=== PATIENT | female | born 1960 | race Caucasian/White ===

== ENCOUNTER 2018-03-02 16:57 | Emergency (ER) | payer MEDICAID ==
[~2018-03-02 16:57] MED LIST: CYCLOBENZAPRINE5 MG PO; Cleocin PO; HYDROCODONE-APA1 TAB PO; LEVAQUIN500 MG PO; MIRALAX17 GM PO; NEURONTIN600 MG PO
[2018-03-02 17:49] VITALS: Ht 152.4 cm
[2018-03-02 19:56] VITALS: BP 122/53
== END 2018-03-02 20:44 | disposition home or self-care (01) ==
LOC: D.ER 16:57
DX: T67.5XXA Heat exhaustion, unspecified, initial encounter (principal); X58.XXXA Exposure to other specified factors, initial encounter; Y93.89 Activity, other specified; Y92.89 Other specified places as the place of occurrence of the external cause; F41.9 Anxiety disorder, unspecified; R42 Dizziness and giddiness; J45.909 Unspecified asthma, uncomplicated; Z85.038 Personal history of other malignant neoplasm of large intestine

== ENCOUNTER 2019-04-30 17:29 | Emergency (ER) | payer MEDICAID ==
[~2019-04-30] VITALS: Ht 152.4 cm; Wt 90.9 kg
[2019-04-30 18:53] LABS: HEMATOCRIT 46.9 % (36.0-48.0); HEMOGLOBIN 15.4 g/dL (12-16); LYMPHOCYTES 23.1 % (15-50); MCH 29.2 pg (26.0-34.0); MCHC 32.8 g/dL (31.0-37.0); MCV 88.8 fL (80.0-100.0); MEAN PLATELET VOLUME 7.2 fL (7.4-10.4); NEUTROPHILS 70.9 % (40-80); RBC 5.28 10x6/uL (4.00-5.40); RDW 14.8 % (11.5-14.5); WBC 10.3 10x3/uL (4.8-10.8)
[2019-04-30 18:54] LABS: PLATELET COUNT 473 10x3/uL (130-400)
[2019-04-30 19:25] LABS: CALC OSMOLALITY 274 mosm/kg (275-300); CALCIUM 9.7 mg/dL (8.5-10.1); CARBON DIOXIDE 25.2 mmol/L (21.0-32.0); CHLORIDE - SERUM 104 mmol/L (98-107); CREATININE - SERUM 0.9 mg/dL (0.6-1.3); GLUCOSE 84 mg/dL (74-106); POTASSIUM - SERUM 4.5 mmol/L (3.5-5.1); SODIUM 138 mmol/L (136-145); UREA NITROGEN 13 mg/dL (7-18); eGFR NON AFRICAN AMERICAN 68 mL/min (90-120)
[2019-04-30 19:35] LABS: ALBUMIN 2.8 g/dL (3.4-5.0); ALKALINE PHOSPHATASE 138 U/L (46-116); ALT (SGPT) 15 U/L (10-68); AMYLASE - SERUM 33 U/L (25-115); BILIRUBIN - TOTAL 0.15 mg/dL (0.2-1.3); LIPASE 62 U/L (73-393); PROTEIN - SERUM 7.4 g/dL (6.4-8.2)
[2019-04-30 19:36] LABS: TROPONIN-I < 0.017 ng/mL (0.000-0.060)
[2019-04-30 20:00] LABS: APPEARANCE CLEAR (CLEAR); BILIRUBIN NEGATIVE (NEGATIVE); COLOR YELLOW (YELLOW); GLUCOSE NEGATIVE (NEGATIVE); KETONE NEGATIVE (NEGATIVE); NITRITE NEGATIVE (NEGATIVE); PROTEIN NEGATIVE (NEGATIVE); UROBILINOGEN NORMAL (NORMAL)
[2019-04-30] MEDS ORDERED: CIPROFLOXACIN750 MG PO (21:22)
[2019-04-30] MEDS ORDERED: FLAGYL500 MG PO (21:22)
[2019-04-30 21:58] VITALS: Ht 152.4 cm; Wt 90.9 kg
[2019-04-30 22:08] VITALS: BP 99/59
== END 2019-04-30 22:08 | disposition home or self-care (01) ==
LOC: D.ER 17:29
PROVIDERS: Family Medicine
DX: K65.1 Peritoneal abscess (principal); K65.9 Peritonitis, unspecified; J45.909 Unspecified asthma, uncomplicated

== ENCOUNTER 2019-05-29 08:49 | Inpatient (IN) | payer MEDICAID ==
[~2019-05-29] VITALS: Ht 152.4 cm; Wt 108.6 kg
[~2019-05-29 08:49] MED LIST changes: +CIPROFLOXACIN750 MG PO; +FLAGYL500 MG PO
[2019-05-30] VITALS (33 sets, daily range): BP systolic 64–157; BP diastolic 32–93; BMI 41.2
[2019-05-30 06:40] LABS: BASOPHILS 0.5 % (0-2); EOSINOPHILS 3.6 % (0-7); HEMATOCRIT 49.3 % (36.0-48.0); HEMOGLOBIN 15.8 g/dL (12-16); IMMATURE GRANULOCYTES 0.6 % (0-5); LYMPHOCYTES 27.8 % (15-50); MCH 28.9 pg (26.0-34.0); MCV 90.3 fL (80.0-100.0); MEAN PLATELET VOLUME 8.3 fL (7.4-10.4); MONOCYTES 7.8 % (2-11); NEUTROPHILS 59.7 % (40-80); RBC 5.46 10x6/uL (4.00-5.40); RDW 15.4 % (11.5-14.5); WBC 7.7 10x3/uL (4.8-10.8)
[2019-05-30 07:04] LABS: APTT 29.4 SECONDS (22.8-39.4); INR 0.92 (0.85-1.17); PROTIME 11.9 SECONDS (11.6-15.0)
[2019-05-30 07:22] LABS: PLATELET COUNT 338 10x3/uL (130-400)
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
--- NOTE | 2019-05-30 08:30 | NUR ---
0807 SPOKE WITH HERO PARSONS, SHAKER OUT. HERO REQUESTED THAT PATRICE BE NOTIFIED. UNABLE TO REACH PATRICE. LEFT [facility] FOR HER TO CALL BACK.
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
[2019-05-30 13:41] LABS: HEMATOCRIT 40.7 % (36.0-48.0); HEMOGLOBIN 12.9 g/dL (12-16)
--- NOTE | 2019-05-30 15:27 | NUR ---
PT ARRIVED TO PACU ON NOREPINEPHRINE DRIP @10ML/HR WITH LOW BP OF 86/50. ANESTHESIA AT BEDSIDE. VERBAL ORDER TO INCREASE TO 20ML/HR. BP TRENDING UP WITH CURRENT BP 122/66. WILL CTM AND TAPER NEEDED/ORDERED.
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
--- NOTE | 2019-05-30 18:15 | NUR ---
DR. RESENDIZ STILL HERE. DR. POOLE HERE AND PLACED L SUBCLAVIAN TRIPLE LUMEN CATH. R RADIAL ART LINE PLACED BY NURSE ANESTHESIST.
--- NOTE | 2019-05-30 19:00 | NUR ---
REPORT RECEIVED. RECEIVED PATIENT IN BED. RESTING WITH EYES CLOSED, ROUSES TO VERBAL STIMULI/DROWSY. ORIENTED TO PERSON WITH SOME CONFUSION TO PLACE/DATE. ASSESSMENT COMPLETED PER FLOW SHEET. MONITORS CONNECTED TO PATIENT. VSS.
[2019-05-30 19:12] LABS: APTT 24.9 SECONDS (22.8-39.4)
[2019-05-30 19:13] LABS: INR 1.29 (0.85-1.17); PROTIME 15.6 SECONDS (11.6-15.0)
--- NOTE | 2019-05-30 21:00 | NUR ---
FAMILY AT BEDSIDE, UPDATE GIVEN. VSS
--- NOTE | 2019-05-30 23:00 | NUR ---
TRANSPORTED TO CT. CONNECTED TO PORTABLE MONITORS. VSS. REASSESSMENT COMPLETED PER FLOW SHEET WITH NO ACUTE DISTRESS OBSERVED.
[2019-05-30 23:05] LABS: HEMATOCRIT 40.3 % (36.0-48.0); HEMOGLOBIN 13.2 g/dL (12-16)
[2019-05-30 23:14] LABS: INR 1.19 (0.85-1.17); PROTIME 14.6 SECONDS (11.6-15.0)
--- NOTE | 2019-05-30 23:23 | NUR ---
RETURNED TO ROOM CV01. BERENICE CT WELL. VSS.
--- NOTE | 2019-05-30 23:37 | NUR ---
SPOKE WITH DR. MATHIAS UPDATED ON PATIENT AND LAB RESULTS. NEW ORDERS RECEIVED.
[2019-05-31] VITALS (82 sets, daily range): BP systolic 73–134; BP diastolic 36–68; Ht 152.4 cm; Wt 108.6 kg
--- NOTE | 2019-05-31 | NUR ---
REPORT RECEIVED. RECEIVED PATIENT IN BED , RESTING WITH EYES CLOSED. ROUSES EASILY TO VOICE/ ALERT AND ORIENTED X 4. ASSESSMENT COMPLETED PER FLOW SHEET WITH NO ACUTE DISTRESS OBSERVED. MONITORS CONNECTED TO PATIENT WITH ALARMS SET. VSS. CALL LIGHT IN REACH AND ABLE TO UTILIZE TO MAKE NEEDS KNOWN.
--- NOTE | 2019-05-31 01:00 | NUR ---
RESTING WITH EYES CLOSED, ROUSES TO VOICE. VSS.
--- NOTE | 2019-05-31 05:00 | NUR ---
RESTING WITH EYES CLOSED, ROUSES TO VERBAL STIMULI/DROWSY. VSS.
[2019-05-31 05:54] LABS: HEMATOCRIT 36.7 % (36.0-48.0); HEMOGLOBIN 11.9 g/dL (12-16); MCH 28.7 pg (26.0-34.0); MCHC 32.4 g/dL (31.0-37.0); MCV 88.6 fL (80.0-100.0); MEAN PLATELET VOLUME 8.4 fL (7.4-10.4); PLATELET COUNT 294 10x3/uL (130-400); RBC 4.14 10x6/uL (4.00-5.40); RDW 15.4 % (11.5-14.5); WBC 24.4 10x3/uL (4.8-10.8)
[2019-05-31 05:57] LABS: APTT 30.4 SECONDS (22.8-39.4); INR 1.23 (0.85-1.17); PROTIME 14.9 SECONDS (11.6-15.0)
[2019-05-31 06:28] LABS: EOSINOPHILS 2 % (0-7); LYMPHOCYTES 7 % (15-50); MONOCYTES 8 % (2-11); NEUTROPHILS 74 % (40-80); PLATELET ESTIMATE NORMAL
[2019-05-31 06:30] LABS: ALBUMIN 1.6 g/dL (3.4-5.0); ANION GAP 13.4 mmol/L (8-16); BILIRUBIN - TOTAL 0.15 mg/dL (0.2-1.3); CARBON DIOXIDE 25.9 mmol/L (21.0-32.0); CREATININE - SERUM 1.3 mg/dL (0.6-1.3); MAGNESIUM - SERUM 1.3 mg/dL (1.8-2.4); PHOSPHOROUS 3.3 mg/dL (2.5-4.9); POTASSIUM - SERUM 4.3 mmol/L (3.5-5.1); PROTEIN - SERUM 4.3 g/dL (6.4-8.2)
[2019-05-31 06:41] LABS: CALCIUM 6.8 mg/dL (8.5-10.1); TROPONIN-I 0.069 ng/mL (0.000-0.060)
--- NOTE | 2019-05-31 06:54 | NUR ---
BHARATHI BALBUENA FOR CRITICAL LAB RESULTS
--- NOTE | 2019-05-31 07:04 | NUR ---
TOD BOBO APN CALLED BACK AND CALCIUM RESULTS WE GIVEN, NO NEW ORDERS
[2019-05-31 11:45] LABS: HEMATOCRIT 32.9 % (36.0-48.0); HEMOGLOBIN 10.7 g/dL (12-16)
[2019-05-31 19:40] LABS: HEMATOCRIT 31.8 % (36.0-48.0); HEMOGLOBIN 10.2 g/dL (12-16)
--- NOTE | 2019-05-31 21:00 | NUR ---
FAMILY AT BEDSIDE. UPDATE GIVEN. VSS. NO DISTRESS OBSERVED
--- NOTE | 2019-05-31 23:00 | NUR ---
RESTING WITH EYES CLOSED, EASILY ROUSED AND ALERT. VSS. REASSMENT COMPLETED PER FLOW SHEET WITH NO ACUTE DISTRESS OBSERVED. CALL LIGHT IN REACH
[2019-06-01] VITALS (31 sets, daily range): BP systolic 90–127; BP diastolic 42–60
--- NOTE | 2019-06-01 01:00 | NUR ---
RESTING WITH EYES CLOSED, EASILY ROUSED TO VERBAL STIMULI AND ALERT. VSS. CALL LIGHT IN REACH
--- NOTE | 2019-06-01 03:00 | NUR ---
REASSESSMENT COMPLETED PER FLOW SHEET WITH NO ACUTE DISTRESS OBSERVED. VSS
[2019-06-01 04:49] LABS: BASOPHILS 0.1 % (0-2); EOSINOPHILS 0.1 % (0-7); HEMATOCRIT 29.1 % (36.0-48.0); HEMOGLOBIN 9.2 g/dL (12-16); IMMATURE GRANULOCYTES 0.5 % (0-5); LYMPHOCYTES 7.6 % (15-50); MCH 28.7 pg (26.0-34.0); MCHC 31.6 g/dL (31.0-37.0); MEAN PLATELET VOLUME 8.4 fL (7.4-10.4); MONOCYTES 3.5 % (2-11); NEUTROPHILS 88.2 % (40-80); RBC 3.21 10x6/uL (4.00-5.40); RDW 15.9 % (11.5-14.5)
[2019-06-01 04:50] LABS: MCV 90.7 fL (80.0-100.0); PLATELET COUNT 223 10x3/uL (130-400)
[2019-06-01 05:09] LABS: ALBUMIN 1.3 g/dL (3.4-5.0); ANION GAP 8.4 mmol/L (8-16); BILIRUBIN - TOTAL 0.15 mg/dL (0.2-1.3); CARBON DIOXIDE 28.5 mmol/L (21.0-32.0); POTASSIUM - SERUM 3.9 mmol/L (3.5-5.1); PROTEIN - SERUM 4.2 g/dL (6.4-8.2)
[2019-06-01 05:18] LABS: MAGNESIUM - SERUM 2.2 mg/dL (1.8-2.4); PHOSPHOROUS 2.4 mg/dL (2.5-4.9)
--- NOTE | 2019-06-01 07:00 | NUR ---
REPORT RECEIVED CARE ASSUMED ASSESSMENT DONE. SEE FLOW SHEET VSS.
[2019-06-01 11:45] LABS: HEMATOCRIT 28.3 % (36.0-48.0); HEMOGLOBIN 8.8 g/dL (12-16)
--- NOTE | 2019-06-01 17:00 | NUR ---
0900 MED GIVEN PER MAR. VSS. 1100 REASSESSMENT DONE SEE FLOW SHEET VSS. NO SIGNS OF ACUTE DISTRESS NOTED. 0100 PT RESTING NO SING SOF ACUTE DISTRESS NOTED. 0300 REASSESSMENT DONE SEE FLOW SHEET. VSS. 0500 IO COLLECTED DAILY WEIGHT COLLECTECTED.
--- NOTE | 2019-06-01 19:00 | NUR ---
REPORT RECIEVED. RECEIVED PATIENT IN BED RESTING WITH EYES CLOSED. ROUSES TO VERBAL STIMULI/LIGHT TOUCH. VERY DROWSY. FALLS TO SLEEP DURING ASSESSMENT. WILL FOLLOW COMMANDS BRIEFLY. MONITORS CONNECTED TO PATIENT WITH ALARMS SET. VSS AT PRESENT. BP TRENDING DOWN, WILL MONITOR.
--- NOTE | 2019-06-01 19:45 | NUR ---
BP 92/46. MAP 58. EPIDURAL INF PAUSED AT THIS TIME.
--- NOTE | 2019-06-01 20:00 | NUR ---
SPOKE WITH CRISTINA SILVA DISH TECHNICIAN DISCUSSED PATIENT'S LOC/SEDATION AND LOW BP,INSTRUCTED TO CONTINUE HOLDING EPIDURAL INF AND DISCUSS WITH DR. MATHIAS.
--- NOTE | 2019-06-01 20:20 | NUR ---
SPOKE WITH DR. MATHIAS, DISCUSSED PATIENTS LOC/SEDATION AND LOW BP. NEW ORDERS RECEIVED.
--- NOTE | 2019-06-01 21:00 | NUR ---
VSS. RESTING WITH EYES CLOSED/ROUSES TO VOICE/DROWSY.
--- NOTE | 2019-06-01 23:00 | NUR ---
REASSESSMENT COMPLETED PER FLOW SHEET. RESTING WITH EYES COSED, ROUSES EASILY TO VOICE. MORE ALERT. ORIENTED X 4. VSS.
[2019-06-02] VITALS (26 sets, daily range): BP systolic 100–143; BP diastolic 36–74
--- NOTE | 2019-06-02 01:00 | NUR ---
PATIENT AWAKE AND ALERT. VSS. PRN PAIN MEDS ADMIN PER MAR AND BERENICE WELL.
--- NOTE | 2019-06-02 03:00 | NUR ---
REASSESSMENT COMPLETED PER FLOW SHEET WITH NO ACUTE DISTRESS OBSERVED. VSS
--- NOTE | 2019-06-02 05:00 | NUR ---
RESTING WITH EYES CLOSED, EASILY ROUSED AND ALERT.VSS
[2019-06-02 05:44] LABS: BASOPHILS 0.1 % (0-2); EOSINOPHILS 0.8 % (0-7); HEMATOCRIT 28.4 % (36.0-48.0); HEMOGLOBIN 8.9 g/dL (12-16); IMMATURE GRANULOCYTES 0.5 % (0-5); LYMPHOCYTES 8.6 % (15-50); MCH 28.7 pg (26.0-34.0); MCHC 31.3 g/dL (31.0-37.0); MCV 91.6 fL (80.0-100.0); MEAN PLATELET VOLUME 8.4 fL (7.4-10.4); MONOCYTES 3.2 % (2-11); NEUTROPHILS 86.8 % (40-80); PLATELET COUNT 228 10x3/uL (130-400); WBC 16.8 10x3/uL (4.8-10.8)
[2019-06-02 06:03] LABS: ALBUMIN 1.3 g/dL (3.4-5.0); ALKALINE PHOSPHATASE 99 U/L (46-116); ALT (SGPT) 11 U/L (10-68); BILIRUBIN - TOTAL 0.14 mg/dL (0.2-1.3); CALC OSMOLALITY 283 mosm/kg (275-300); CALCIUM 7.7 mg/dL (8.5-10.1); CARBON DIOXIDE 27.3 mmol/L (21.0-32.0); CHLORIDE - SERUM 110 mmol/L (98-107); CREATININE - SERUM 0.7 mg/dL (0.6-1.3); GLUCOSE 100 mg/dL (74-106); PHOSPHOROUS 1.9 mg/dL (2.5-4.9); POTASSIUM - SERUM 3.8 mmol/L (3.5-5.1); PROTEIN - SERUM 4.6 g/dL (6.4-8.2); SODIUM 143 mmol/L (136-145); UREA NITROGEN 11 mg/dL (7-18); eGFR NON AFRICAN AMERICAN > 90 mL/min (90-120)
--- NOTE | 2019-06-02 11:00 | NUR ---
0700 ASSESSMENT DONE SEE FLOW SHEET VSS NO SIGNS OF ACUTE DISTRESS NOTED. 0900 MED GIVEN PER MAR. VSS. NO SIGNS OF ACUTE DISTRESS. 1100 REASSESSMENT DONE SEE FLOW SHEET. VSS.
--- NOTE | 2019-06-02 12:08 | NUR ---
PT CRYING OUT IN PAIN. VEHICLE CONTROLS ENGINEER BOLUS DOSE GIVEN WILL CONTINUE TO MONITOR.
--- NOTE | 2019-06-02 12:50 | NUR ---
Nutrition Follow-up: Awaiting return of bowel function. NGT to LIS. NPO x 3 days. Wt: 239# (06/01); 234.7# (05/31) Labs noted: Ca 7.7, Alb 1.3, PO4 1.9 Meds noted: D5LR @ 70 -Rec initiate nutrition support. RD available for assistance. -RD following.
--- NOTE | 2019-06-02 15:00 | NUR ---
1300 PT AMBULATED TO CHAIR AND BED MODERATE ASSISTANCE PROVIDED. 1500 REASSESSMENT DONE SEE FLOW SHEET VSS.
--- NOTE | 2019-06-02 19:24 | NUR ---
PT RECEIVED WITH EYES OPEN WATCHING TV. COMPLAINS OF PAIN 8/10 MECHANICAL LABORATORY TECHNICIAN LIGHT GREEN, PT ENCOURAGED TO USE MECHANICAL LABORATORY TECHNICIAN. NO OTHER NEEDS OR CONCERNS NOTED. CALL LIGHT IN REACH. WILL CONTINUE TO OBSERVE.
--- NOTE | 2019-06-02 21:20 | NUR ---
PT WITH EYES OPEN. PT MOANING AND STATES PAIN, LIGHT GREEN ON HOME ADMINISTRATOR AND PT REMINDED TO PUSH LIGHT WHEN GREEN IF SHE IS HURTING. PT SAYS OK. NO OTHER NEEDS OR REQUEST. WILL CONTINUE TO OBSERVE. CALL LIGHT IN REACH.
--- NOTE | 2019-06-02 23:30 | NUR ---
PT CONTINUES PAIN WITH 0.4 BOLUS GIVEN. VSS AT THIS TIME. WILL CONTIUE TO OBSERVE.
[2019-06-03] VITALS (18 sets, daily range): BP systolic 91–157; BP diastolic 56–91
--- NOTE | 2019-06-03 01:13 | NUR ---
PT ON BIPAP WITH EYES CLOSED AND CHEST RISING. VSS. NO S/S OF DISTRESS. CALL LIGHT IN REACH. WILL CONTINUE TO OBSERVE.
--- NOTE | 2019-06-03 05:27 | NUR ---
PT GIVEN CHG BATH, TOLERATED WELL. LINENS CHANGED. WILL CONTINUE TO OBSERVE.
--- NOTE | 2019-06-03 05:28 | NUR ---
PT CONTINUES BIPAP, TOLERATING WELL. NO S/S OF DISTRESS. WILL CONTINUE TO OBSERVE.
--- NOTE | 2019-06-03 09:00 | NUR ---
0700 ASSESSMENT DONE SEE FLOW SHEET VSS 0900 WATER PROVIDED PER PT REQUEST VSS WILL CONTINUE TO MONITOR.
[2019-06-03 09:06] LABS: HEMATOCRIT 29.4 % (36.0-48.0); HEMOGLOBIN 9.3 g/dL (12-16); MCH 28.5 pg (26.0-34.0); MCHC 31.6 g/dL (31.0-37.0); MCV 90.2 fL (80.0-100.0); RBC 3.26 10x6/uL (4.00-5.40); RDW 15.5 % (11.5-14.5); WBC 13.2 10x3/uL (4.8-10.8)
[2019-06-03 09:08] LABS: PLATELET COUNT 299 10x3/uL (130-400)
[2019-06-03 09:20] LABS: ALBUMIN 1.3 g/dL (3.4-5.0); ALKALINE PHOSPHATASE 107 U/L (46-116); ALT (SGPT) 10 U/L (10-68); BILIRUBIN - TOTAL 0.39 mg/dL (0.2-1.3); CALCIUM 7.9 mg/dL (8.5-10.1); CARBON DIOXIDE 26.9 mmol/L (21.0-32.0); CHLORIDE - SERUM 106 mmol/L (98-107); GLUCOSE 80 mg/dL (74-106); POTASSIUM - SERUM 3.5 mmol/L (3.5-5.1); PROTEIN - SERUM 4.9 g/dL (6.4-8.2); SODIUM 138 mmol/L (136-145)
[2019-06-03 09:21] LABS: CALC OSMOLALITY 272 mosm/kg (275-300); CREATININE - SERUM 0.5 mg/dL (0.6-1.3); UREA NITROGEN 8 mg/dL (7-18); eGFR NON AFRICAN AMERICAN > 90 mL/min (90-120)
--- NOTE | 2019-06-03 10:22 | OP ---
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 POSTOPERATIVE DIAGNOSES: 1. Longstanding intra-abdominal draining sinus tract, due to an intra-abdominal "meshoma." 2. Extensive intra-abdominal adhesions. 3. Full-thickness enterotomies times 2. 4. Multiple seromyotomies. 5. Large central abdominal myofascial defect after mesh was excised. PROCEDURES: 1. Exploratory laparotomy, extensive adhesiolysis, 95 minutes. 2. Extensive excisional debridement of abdominal wall. 3. Small bowel resections times 2 with enteroenterostomies. 4. Bilateral component's separation technique for abdominal wall closure. The myofascial release on the left was 20.0 cm and on the right was 15.5 cm. SURGEON: Jeremy Mathias MD CHANNEL LIP WETTER: None. BLOOD LOSS: Please see the anesthesia sheet. DRAINS: Times 2. 19-Urdu round fully fluted closed suction drainage systems. This was a dirty case as purulence was present. The risks, possible complications and alternatives to the procedure were explained to the patient. She elects to proceed. The discussion specifically included, but was not limited to, bleeding requiring an emergency reoperation, infection, intestinal injury, recurrent hernia, colostomy or ileostomy formation, recurrent infection or draining sinus. OPERATIVE COURSE: The patient was conveyed to the operating room electively on 05/30/2019. General anesthesia was induced by the anesthesia staff. The abdomen was sterilely prepped and draped. The patient underwent a placement of an epidural for postoperative pain relief. After general anesthesia, a central venous catheter was placed by the anesthesia staff. Through the use of double curvilinear incisions, the skin and subcutaneous tissue in the midline was excised. 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 I did not take measurements of the excised tissue. I then incised in the midline down to some mesh. I incised through the mesh. I OPERATIVE REPORT [id number] PATRICE COOK then extended my fascial incision caudad. My adhesiolysis cephalad revealed no incisional hernia. The hernia was a meticulous operation and most of the adhesions were grade II and grade III adhesions. Several seromyotomies has occurred. Two full-thickness enterotomies occurred and this was around the meshoma. In the midline posteriorly, I was able to follow the cutaneous sinus down to a wad of mesh that contained purulent material. Cultures were obtained. I can see why the patient had a recurrent draining wound. As this ball of mesh became infected, it made it almost impossible to heal the mesh as it was a nidus for a chronic draining. I noted no enterocutaneous fistula. On either side of the mesh I excised, there was a great deal of fibrotic material around the mesh. I excised this. This was a fairly extensive excision. There were several loops of small bowel, which really were inseparable from the mesh and this is where the full-thickness enterotomies occurred. I controlled contamination by placing Babcocks on the areas where the enterotomies occurred. There were no colotomies. I excised this meshoma. Additional mesh, that was not well incorporated into the patient's abdominal wall, was sharply and bluntly excised in a piecemeal fashion as well. The mesh that was well incorporated into the anterior abdominal wall, particularly cephalad and laterally, was left in place without trying to excise it as this would have been counterproductive. Some attenuated fascia in the midline was excised so that I could excise back to the rectus fascia bilaterally. I extended my incision caudad. Some of this mesh tracked all the way anterior to the left side of the bladder. I tried to excise as much of this mesh as I could, however, in order to excise all this mesh I would have had to perform a partial cystectomy with a bladder reconstruction as the mesh and the bladder were really inseparable. Additionally, this mesh which was between the pubic bone and the bladder extended to the left and is likely a stuck to, or very near the left ureter as it enters the bladder. I identified on purulence here. What I did here is I irrigated with hydrogen peroxide. I then closed some surrounding tissue over this remaining mesh. This was a 2-layer closure with 2-0 Vicryls. I then began to run the small bowel. There was at least one old anastomosis that I could identify. I identified numerous seromyotomies and these were closed with tangential firings of the TA-30 stapler. One of these areas of the enterotomies was near the anastomosis, which was of an unusual configuration. It almost looked like the patient had undergone a gastric bypass in the past, but I am told that is not the case. The anastomosis was a T-shaped anastomosis. It was really quite difficult to identify the intestinal continuity. A set of enterotomies was near this T-shaped anastomosis. I placed the small bowel next to this anastomosis in a bzas-ay-flxl fashion and kept it in place with 3-0 Vicryls. I then used a SIDNEY-75 stapler to begin the anastomosis and then used the TA 60 stapler to close the enteric defect. I felt that this anastomosis possibly could lead to an area of ischemic bowel. I decided to take down this anastomosis. OPERATIVE REPORT [id number] PATRICE COOK Distally and on the side branch of the anastomosis I stapled across the bowel here with a SIDNEY-75 stapler. The mesentery between these 2 defects was sealed and divided with the Super Jaw EnSeal device. This portion was removed. I then placed the other 2 limbs in apposition side by side. 3-0 Vicryls were placed along the antimesenteric borders. Two enterotomies were accomplished one on either side. Anvils of the SIDNEY-75 stapler were advanced and then fired. The resulting enteric defect was closed with a single firing of TA 60 stapler. I then ran the small bowel. Some additional seromyotomies were identified. These were closed tangentially with a TA-30 stapler. During closure of these seromyotomies, there was no apparent narrowing of the bowel. This left me with one other enteric defect to deal with. The viable portion of the bowel proximally and distally was placed into apposition side by side with the antimesenteric borders sutured together with interrupted 3-0 Vicryls. I then advanced the anvils of the SIDNEY-75 stapler through the enterotomies and then fired. The resulting enteric defect was closed with single firing of TA 60 stapler. The mesentery between the proximal and distal extent of the resection was sealed and divided with the Super Jaw EnSeal device. I then ran the small bowel from the ligament of Treitz to the ileocecal valve. I then tracked the colon as well. There were no full-thickness myotomies. The bowel appeared viable. It was in continuity. The patient had enough small bowel, which was measured, so that it does not appear the patient will have short gut syndrome. I irrigated and aspirated. I tried to close the rectus fascia in the midline, was unable to do so. Therefore, the component separation technique of myofascial advancement was indicated. I went around to the left side and the left paramedian incision was accomplished far laterally. This was between the anterior superior iliac spine and the right costal margin. I dissected down through the skin and subcutaneous tissue to the external oblique muscle and fascia. This was incised with the electrocautery. I extended myofascial release proximally and distally. Some finger blunt dissection was performed anteriorly and posteriorly in order to help mobilize the muscle and fascia. I then took measurements of the myofascial release and this is listed above. In the midline, I tried to close the muscle in the midline in order to prevent an incisional hernia. I felt that placing synthetic mesh in this contaminated field would be contraindicated. As I was unable to close the muscle and fascia in the midline, the bilateral Component's separation technique was indicated. I went around to the contralateral side and here again a paramedian incision was accomplished between the anterior superior iliac spine and the right costal margin. I incised down through skin and subcutaneous tissue to the external oblique muscle. This was incised with the electrocautery. I extended this dissection proximally and distally. I then performed some finger blunt dissection of the rectus muscle anteriorly and posteriorly in order to aid for the myofascial muscle advancement OPERATIVE REPORT [id number] PATRICE COOK in the midline. Dimensions of the myofascial release were obtained. Bilateral 19-Urdu round Bharat drains were brought out, one in the left flank and one in the right flank. These were placed, one in the pelvis and one up under the left diaphragm. The drains were sutured to skin with 2-0 nylons. I was then able to irrigate the abdomen. There was no bleeding. The fascia in the midline was closed with a running looped #1 PDS. I then overran this fascial closure with running #1 Vicryls. The subcutaneous adipose tissue in the midline was closed with interrupted 3-0 Vicryls. The skin was closed in several areas with interrupted vertical mattress 2-0 nylons. The rest of the skin was closed with skin clips. At these sites of the myofascial releases laterally, the incisions were closed with interrupted 3-0 Vicryls for the deep adipose tissue as well as metallic clips for the skin. A Provena wound VAC was then placed over the midline incision. Sterile dressings were applied. The patient was then conveyed to the intensive care unit in critical, but stable condition. TRANSINT:[id number] Voice Confirmation ID: [id number] DOCUMENT ID: [id number] JEREMY MATHIAS MD at 1022 CC: [id number] DICTATION DATE: 06/01/19 1502 AIR SUPPORT CONTROL OFFICER: 06/01/19 1909 ADM IN [facility] [address] [id number]
--- NOTE | 2019-06-03 11:00 | NUR ---
REASSESSMENT DONE SEE FLOW SHEET VSS
[2019-06-03 11:56] LABS: ANISOCYTOSIS OCC; EOSINOPHILS 2 % (0-7); LYMPHOCYTES 17 % (15-50); MONOCYTES 8 % (2-11); NEUTROPHILS 70 % (40-80); PLATELET ESTIMATE NORMAL
--- NOTE | 2019-06-03 15:00 | NUR ---
1300 WATER PROVIDED PER REQUEST. VSS. 1500 REASSESSMENT DONE SEE FLOW SHEET. VSS. AUGIE PULLED PER DR MARTIN VERBAL ORDER. WILL CONTINUE TO MONITOR.
--- NOTE | 2019-06-03 17:37 | NUR ---
REPORT CALLED TO ISELA.
--- NOTE | 2019-06-03 18:55 | NUR ---
PATIENT RESTING IN BED WITH EYES OPEN. NO S/S OF DISTRESS. PATIENT COMPLAINS OF PAIN. PATIENT WAS INSTRUCTED ON HOW TO USE THE NAT INSTRUCTOR WITH DILAUDID FOR PAIN. PATIENT HAS A LEFT SUBCLAVIAN CENTRAL LINE. DRESSING IS C/D/I. PATIENT IV HAS RUNNING D5-LR @ 70 ML/HR. PATIENT HAS A PREVENA VAC ON ABDOMINAL WOUND FROM BOWEL RESECTION. PATIENT HAS A ADDIS DRAIN ON BOTH THE LEFT AND RIGHT SIDE OF ADBOMEN. PATIENT HAS A BURK. PATIENT IS ON CONTACT ISOLATION PRECATIONS. CALL LIGHT IN PLACE. WILL CONTINUE TO MOINTOR.
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
[2019-06-04 01:30] VITALS: BP 124/76
--- NOTE | 2019-06-04 06:18 | NUR ---
I have reviewed this patient and I concur with the Shift Assessment completed by the Licensed Practical Nurse today this shift.
[2019-06-04 06:47] LABS: BASOPHILS 0.2 % (0-2); EOSINOPHILS 2.4 % (0-7); IMMATURE GRANULOCYTES 4.4 % (0-5); LYMPHOCYTES 11.8 % (15-50); MCH 28.4 pg (26.0-34.0); MCHC 32.1 g/dL (31.0-37.0); MCV 88.3 fL (80.0-100.0); MEAN PLATELET VOLUME 8.1 fL (7.4-10.4); NEUTROPHILS 73.2 % (40-80); PLATELET COUNT 317 10x3/uL (130-400); RBC 3.17 10x6/uL (4.00-5.40)
[2019-06-04 06:54] LABS: WBC 8.8 10x3/uL (4.8-10.8)
[2019-06-04 06:56] LABS: ALBUMIN 1.2 g/dL (3.4-5.0); ALKALINE PHOSPHATASE 103 U/L (46-116); ALT (SGPT) 12 U/L (10-68); BILIRUBIN - TOTAL 0.53 mg/dL (0.2-1.3); CALC OSMOLALITY 273 mosm/kg (275-300); CALCIUM 7.8 mg/dL (8.5-10.1); CARBON DIOXIDE 24.2 mmol/L (21.0-32.0); CHLORIDE - SERUM 106 mmol/L (98-107); CREATININE - SERUM 0.5 mg/dL (0.6-1.3); GLUCOSE 82 mg/dL (74-106); POTASSIUM - SERUM 3.4 mmol/L (3.5-5.1); SODIUM 139 mmol/L (136-145); eGFR NON AFRICAN AMERICAN > 90 mL/min (90-120)
[2019-06-04 07:11] LABS: UREA NITROGEN 4 mg/dL (7-18)
--- NOTE | 2019-06-04 08:00 | NUR ---
ASSESSMENT PER FLOW SHEET. PT IS WITHOUT DISTRESS.ISOLATION MAINTAINED.CALL LIGHT IN REACH
[2019-06-04 08:57] VITALS: BP 154/82
[2019-06-04 11:54] VITALS: BP 156/71
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
[2019-06-04 16:15] VITALS: BP 174/69
--- NOTE | 2019-06-04 16:18 | NUR ---
SISTER AT BEDSIDE. PT HAS BEEN MADE CONFIDENTIAL PER HER REQUEST. PASSWORD SET UP WITH PATIENT AND SISTER. PATIENT REMAINS UP IN CHAIR,SHE DID HAVE MILD NAUSEA AND MEDS GIVEN PER MAR.MONITOR FOR NEEDS
--- NOTE | 2019-06-04 17:33 | NUR ---
SIT UP FOR A FEW HOURS THIS AFTERNOON. BACK TO BED WITH ASSIST OF MYSELF AND SAFETY INSPECTOR.GAIT STEADY WITH ASSIST.CONT PLAN OF CARE
--- NOTE | 2019-06-04 18:42 | NUR ---
DENIES NEEDS.WITHOUT CHANGE FROM INITIAL SHIFT ASSESSMENT.CONT PLAN OF CARE
[2019-06-04 19:30] VITALS: BP 137/92; BP 176/82
[2019-06-05 00:30] VITALS: BP 180/76
[2019-06-05 05:30] VITALS: BP 175/72
[2019-06-05 09:20] VITALS: BP 172/79
--- NOTE | 2019-06-05 09:30 | NUR ---
PREVENA DRESSING AIRTIGHT AND INTACT. NO DRAINAGE.
[2019-06-05 11:44] LABS: HEMATOCRIT 30.8 % (36.0-48.0); HEMOGLOBIN 10.1 g/dL (12-16); MCH 28.7 pg (26.0-34.0); MCHC 32.8 g/dL (31.0-37.0); MCV 87.5 fL (80.0-100.0); MEAN PLATELET VOLUME 7.9 fL (7.4-10.4); PLATELET COUNT 329 10x3/uL (130-400); RBC 3.52 10x6/uL (4.00-5.40); RDW 14.8 % (11.5-14.5)
[2019-06-05 12:05] LABS: WBC 11.1 10x3/uL (4.8-10.8)
[2019-06-05 12:14] LABS: ALBUMIN 1.4 g/dL (3.4-5.0); ALKALINE PHOSPHATASE 126 U/L (46-116); ALT (SGPT) 15 U/L (10-68); BILIRUBIN - TOTAL 0.47 mg/dL (0.2-1.3); CALC OSMOLALITY 272 mosm/kg (275-300); CALCIUM 8.3 mg/dL (8.5-10.1); CARBON DIOXIDE 26.3 mmol/L (21.0-32.0); CHLORIDE - SERUM 105 mmol/L (98-107); CREATININE - SERUM 0.5 mg/dL (0.6-1.3); GLUCOSE 100 mg/dL (74-106); POTASSIUM - SERUM 3.4 mmol/L (3.5-5.1); PROTEIN - SERUM 5.5 g/dL (6.4-8.2); SODIUM 138 mmol/L (136-145); UREA NITROGEN 5 mg/dL (7-18); eGFR NON AFRICAN AMERICAN > 90 mL/min (90-120)
[2019-06-05 12:31] VITALS: BP 150/75
[2019-06-05 14:49] LABS: ANISOCYTOSIS OCC; EOSINOPHILS 3 % (0-7); LYMPHOCYTES 18 % (15-50); MONOCYTES 11 % (2-11); NEUTROPHILS 65 % (40-80); PLATELET ESTIMATE NORMAL
[2019-06-05 17:36] VITALS: BP 136/79
[2019-06-05 21:14] VITALS: BP 141/59
--- NOTE | 2019-06-05 21:42 | NUR ---
D/C'D BURK CATHETOR AND 2 ADDIS DRAINS. DRESSING OVER INCISIONS FROM ADDIS DRAINS ARE BOTH C/D/I.
--- NOTE | 2019-06-06 00:04 | NUR ---
PATIENT STATES SHE FEELS SCARED AND ANXCIOUS AND DOESN'T KNOW WHY. CONTACTED THE DOCTOR VEGETABLE HARVEST WORKER.
[2019-06-06 00:30] VITALS: BP 130/62
[2019-06-06 05:30] VITALS: BP 153/72
[2019-06-06 06:15] LABS: HEMATOCRIT 28.4 % (36.0-48.0); HEMOGLOBIN 9.2 g/dL (12-16); MCHC 32.4 g/dL (31.0-37.0); MCV 86.6 fL (80.0-100.0); PLATELET COUNT 373 10x3/uL (130-400); RBC 3.28 10x6/uL (4.00-5.40); WBC 11.1 10x3/uL (4.8-10.8)
[2019-06-06 06:16] LABS: ALBUMIN 1.3 g/dL (3.4-5.0); ALKALINE PHOSPHATASE 130 U/L (46-116); BILIRUBIN - TOTAL 0.44 mg/dL (0.2-1.3); CALC OSMOLALITY 275 mosm/kg (275-300); CALCIUM 8.3 mg/dL (8.5-10.1); CARBON DIOXIDE 27.3 mmol/L (21.0-32.0); CHLORIDE - SERUM 106 mmol/L (98-107); CREATININE - SERUM 0.4 mg/dL (0.6-1.3); GLUCOSE 95 mg/dL (74-106); POTASSIUM - SERUM 3.4 mmol/L (3.5-5.1); PROTEIN - SERUM 5.2 g/dL (6.4-8.2); SODIUM 140 mmol/L (136-145); UREA NITROGEN 4 mg/dL (7-18); eGFR NON AFRICAN AMERICAN > 90 mL/min (90-120)
[2019-06-06 06:23] LABS: ALT (SGPT) 19 U/L (10-68)
[2019-06-06 06:38] LABS: EOSINOPHILS 5 % (0-7); LYMPHOCYTES 11 % (15-50); MONOCYTES 4 % (2-11); NEUTROPHILS 78 % (40-80); PLATELET ESTIMATE NORMAL
--- NOTE | 2019-06-06 08:45 | NUR ---
PATIENT IN BED WITH IV INTACT. NO COMPLAINTS OR SIGNS OF DISTRESS. PROVENA INTACT. CALL LIGHT WITHIN REACH. BSCDS ON AND WORKING.
[2019-06-06 09:24] VITALS: BP 177/86
--- NOTE | 2019-06-06 12:54 | NUR ---
Nutrition follow-up: NPO/Clear liquids x 9 days labs reviewed Wt: 239# Pt assessed with severe malnutrition of acute illness R/T abdominal fistula AEB: 1. < 50% intake of estimated energy needs for > 5 days 2. measurable reduced fiberglass grinder strength Stongly recommend starting nutrition support of parenteral nutrition due to pt NPO/clear liquids x 9 days and with severe malnutrition. RDN will assist with nutrition support when ordered. Following.
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
[2019-06-06 13:41] VITALS: BP 158/59
[2019-06-06 17:16] VITALS: BP 152/69
--- NOTE | 2019-06-06 18:45 | NUR ---
PATIENT IN BED WITH IV INTACT. MORE COMFORTABLE THAN EARLIER. NO COMPLAINTS OR SIGNS OF DISTRESS. CALL LIGHT WITHIN REACH.
--- NOTE | 2019-06-06 19:00 | NUR ---
BEDSIDE REPORT RECEIVED AND CARE OF PT ASSUMED. PT LYING IN LOW LUNA'S POSITION WITH EYES CLOSED. LEFT SC CENTRAL LINE PATENT WITH D5LR INFUSING AT 70 ML/HR. KIER OPERATOR W/ DILAUDID IN USE FOR PAIN CONTROL. WOUND VAC ON ABDOMINAL INCISION WELL COMPRESSED WITH NO LEAKAGE ALARMS. WILL MONITOR FOR NEEDS.
--- NOTE | 2019-06-06 19:56 | NUR ---
HS MEDICATIONS GIVEN. WILL CONTINUE TO MONITOR FOR NEEDS.
[2019-06-06 20:00] VITALS: BP 156/70
[2019-06-07] VITALS: BP 133/82
[2019-06-07 04:00] VITALS: BP 145/74
[2019-06-07 06:29] LABS: BASOPHILS 0.4 % (0-2); EOSINOPHILS 5.7 % (0-7); HEMATOCRIT 29.2 % (36.0-48.0); HEMOGLOBIN 9.4 g/dL (12-16); IMMATURE GRANULOCYTES 4.2 % (0-5); MCHC 32.2 g/dL (31.0-37.0); MCV 86.9 fL (80.0-100.0); MEAN PLATELET VOLUME 7.9 fL (7.4-10.4); MONOCYTES 8.3 % (2-11); NEUTROPHILS 66.4 % (40-80); PLATELET COUNT 417 10x3/uL (130-400); RBC 3.36 10x6/uL (4.00-5.40); RDW 15.2 % (11.5-14.5)
[2019-06-07 06:45] LABS: WBC 8.1 10x3/uL (4.8-10.8)
[2019-06-07 07:04] LABS: ALBUMIN 1.6 g/dL (3.4-5.0); ALKALINE PHOSPHATASE 156 U/L (46-116); BILIRUBIN - TOTAL 0.36 mg/dL (0.2-1.3); CALC OSMOLALITY 281 mosm/kg (275-300); CALCIUM 8.2 mg/dL (8.5-10.1); CARBON DIOXIDE 27.6 mmol/L (21.0-32.0); CHLORIDE - SERUM 106 mmol/L (98-107); CREATININE - SERUM 0.5 mg/dL (0.6-1.3); GLUCOSE 104 mg/dL (74-106); POTASSIUM - SERUM 3.7 mmol/L (3.5-5.1); PROTEIN - SERUM 4.8 g/dL (6.4-8.2); SODIUM 143 mmol/L (136-145); UREA NITROGEN 3 mg/dL (7-18); eGFR NON AFRICAN AMERICAN > 90 mL/min (90-120)
[2019-06-07 07:05] LABS: ALT (SGPT) 25 U/L (10-68)
[2019-06-07 09:13] VITALS: BP 139/66
--- NOTE | 2019-06-07 11:26 | NUR ---
RESTING IN BED, NO DISTRESS NOTED CHIP TESTER IN PLACE, IV INFUSING, WOUND VAC TO MIDLINE ABD, CONT TO MONITOR PAIN AND APPETITE
--- NOTE | 2019-06-07 12:54 | NUR ---
1200 UP IN CHAIR AFTER WALK WITH PT, SHE THEN C/O NAUSEA, HAD LARGE GREENISH/YELLOW EMESIS, MEDICATED FOR NAUSEA AND CLEAN
[2019-06-07 13:38] VITALS: BP 149/59
[2019-06-07 17:12] VITALS: BP 158/57
--- NOTE | 2019-06-07 19:00 | NUR ---
BEDSIDE REPORT RECEIVED AND CARE OF PT ASSUMED. PT LYING IN LOW LUNA'S POSITION WITH EYES CLOSED. LEFT SC CENTRAL LINE PATENT WITH D5LR INFUSING AT 70 ML/HR. PREVENA WOUND VAC IN PLACE ON ABDOMINAL INCISION WITH NO LEAKAGE ALARMS. SCD'S IN PLACE ON BLE. WILL MONITOR FOR NEEDS.
[2019-06-07 20:00] VITALS: BP 141/68
--- NOTE | 2019-06-07 22:40 | NUR ---
HS MEDICATIONS GIVEN. GAVE LEMON TOGIAK SODA FOR HS SNACK.
[2019-06-08] VITALS (10 sets, daily range): BP systolic 124–170; BP diastolic 56–72
--- NOTE | 2019-06-08 01:00 | NUR ---
CHANGED OUT ALL TUBING. WASTED 10 ML DILAUDID FROM DISCONTINUED RESEARCH ENGINEER MARINE EQUIPMENT WITH WITNESS.
--- NOTE | 2019-06-08 01:25 | NUR ---
GAVE MORPHINE 2 MG IVP PER PRN ORDER, PER REQUEST FOR PAIN. WILL MONITOR FOR EFFECTIVENESS.
[2019-06-08 06:12] LABS: BASOPHILS 0.2 % (0-2); HEMATOCRIT 26.2 % (36.0-48.0); HEMOGLOBIN 8.2 g/dL (12-16); IMMATURE GRANULOCYTES 2.2 % (0-5); LYMPHOCYTES 17.4 % (15-50); MCH 27.9 pg (26.0-34.0); MCHC 31.3 g/dL (31.0-37.0); MEAN PLATELET VOLUME 7.9 fL (7.4-10.4); MONOCYTES 6.9 % (2-11); NEUTROPHILS 69.3 % (40-80); PLATELET COUNT 435 10x3/uL (130-400); RBC 2.94 10x6/uL (4.00-5.40); RDW 15.2 % (11.5-14.5); WBC 8.6 10x3/uL (4.8-10.8)
[2019-06-08 06:24] LABS: MCV 89.1 fL (80.0-100.0)
[2019-06-08 06:56] LABS: ALBUMIN 1.4 g/dL (3.4-5.0); ALKALINE PHOSPHATASE 121 U/L (46-116); BILIRUBIN - TOTAL 0.24 mg/dL (0.2-1.3); CALC OSMOLALITY 275 mosm/kg (275-300); CARBON DIOXIDE 27.2 mmol/L (21.0-32.0); CHLORIDE - SERUM 107 mmol/L (98-107); CREATININE - SERUM 0.5 mg/dL (0.6-1.3); GLUCOSE 97 mg/dL (74-106); POTASSIUM - SERUM 3.2 mmol/L (3.5-5.1); PROTEIN - SERUM 4.7 g/dL (6.4-8.2); SODIUM 140 mmol/L (136-145); UREA NITROGEN 3 mg/dL (7-18); eGFR NON AFRICAN AMERICAN > 90 mL/min (90-120)
[2019-06-08 06:57] LABS: ALT (SGPT) 18 U/L (10-68)
--- NOTE | 2019-06-08 09:23 | NUR ---
RESTING IN BED, UPSET ABOUT CL LIQ DIET AND LOSS OF GREETING CARD WRITER, CONT TO MONITOR PAIN AND INTAKE TODAY, WOUND VAC IN PLACE TO ABD
--- NOTE | 2019-06-08 10:56 | NUR ---
REMOVED GAUZE ABD DRESSINGS, NO S/S OF INFECTION NOTED, LEFT CURVE SAW OPERATOR AT DR REQUEST, FELECIA INTACT
--- NOTE | 2019-06-08 16:24 | NUR ---
WAITING IN LAB TO REDRAW PT T&C TO TRANSFUSE
--- NOTE | 2019-06-08 19:00 | NUR ---
BEDSIDE REPORT RECEIVED AND CARE OF PT ASSUMED. PT LYING IN SUPINE POSITION WATCHING TV. PRBC'S INFUSING AT 125 ML/HR. VITALS STABLE AND PT IS AFEBRILE. WOUND VAC ON ABDOMEN WELL COMPRESSED WITH NO LEAKAGE ALARMS.
--- NOTE | 2019-06-08 19:08 | NUR ---
183 FIRST UNIT OF BLOOD STARTED, CONT TO MONITOR
--- NOTE | 2019-06-08 21:55 | NUR ---
1ST UNIT OF PRBC'S COMPLETE AND LINE FLUSHING.
--- NOTE | 2019-06-08 23:20 | NUR ---
2ND UNIT OF PRBC'S STARTED. VITALS STABLE AND PT IS AFEBRILE.
[2019-06-09] VITALS: BP 153/59
--- NOTE | 2019-06-09 00:30 | NUR ---
PT C/O OF PAIN AND NAUSEA. GAVE ZOFRAN 4 MG IVP AND NORCO PO. WILL MONITOR FOR EFFECTIVENESS.
--- NOTE | 2019-06-09 02:05 | NUR ---
2ND UNIT OF PRBC'S COMPLETE.
[2019-06-09 04:00] VITALS: BP 121/61
--- NOTE | 2019-06-09 04:19 | NUR ---
PEDRO BLOOD FROM CENTRAL LINE FOR AM LABS AND DELIVERED TO SPRINKLER WORKER.
[2019-06-09 05:09] LABS: BASOPHILS 0.3 % (0-2); EOSINOPHILS 3.8 % (0-7); IMMATURE GRANULOCYTES 1.8 % (0-5); LYMPHOCYTES 16.4 % (15-50); MCH 28.5 pg (26.0-34.0); MCHC 32.8 g/dL (31.0-37.0); MONOCYTES 7.3 % (2-11); NEUTROPHILS 70.4 % (40-80); PLATELET COUNT 460 10x3/uL (130-400); RDW 15.4 % (11.5-14.5)
[2019-06-09 05:37] LABS: % SATURATION 31 % (15-55); IRON 53 ug/dl (35-150); TOTAL IRON BIND CAPACITY 167 ug/dl (260-445); UNSAT IRON BIND CAPACITY 114 ug/dl (150-375)
[2019-06-09 05:42] LABS: HEMATOCRIT 32.9 % (36.0-48.0); HEMOGLOBIN 10.8 g/dL (12-16); MCV 86.8 fL (80.0-100.0); RBC 3.79 10x6/uL (4.00-5.40); WBC 10.9 10x3/uL (4.8-10.8)
[2019-06-09 05:53] LABS: ALBUMIN 1.6 g/dL (3.4-5.0); ALKALINE PHOSPHATASE 135 U/L (46-116); ALT (SGPT) 16 U/L (10-68); BILIRUBIN - TOTAL 0.48 mg/dL (0.2-1.3); CALC OSMOLALITY 274 mosm/kg (275-300); CALCIUM 8.5 mg/dL (8.5-10.1); CARBON DIOXIDE 30.3 mmol/L (21.0-32.0); CHLORIDE - SERUM 106 mmol/L (98-107); CREATININE - SERUM 0.6 mg/dL (0.6-1.3); FERRITIN 168 ng/mL (3-244); GLUCOSE 80 mg/dL (74-106); POTASSIUM - SERUM 3.5 mmol/L (3.5-5.1); SODIUM 140 mmol/L (136-145); eGFR NON AFRICAN AMERICAN > 90 mL/min (90-120)
[2019-06-09 05:56] LABS: UREA NITROGEN 4 mg/dL (7-18)
--- NOTE | 2019-06-09 06:24 | NUR ---
POTASSIUM LEVEL 3.5 THIS AM. PER ELECTROLYTE PROTOCAL WILL GIVE X2 20 MEQ POTASSIUM RIDERS VIA CENTRAL LINE. RUNNING AT 50 ML/HR ALONG SIDE NS @ 50 ML/HR PER PROTOCAL.
--- NOTE | 2019-06-09 07:30 | NUR ---
PT LYING IN BED, PT MIDLINE INCISION, FELECIA ON LEFT SIDE OF ABDOMEN AND ADDIS SITES ARE ALL CDI, NO NEEDS VOICED FROM PT AT THIS TIME, CL IN REACH BED IN LOWEST POSITION, ASSUME PT CARE
[2019-06-09 08:56] VITALS: BP 150/59
[2019-06-09 12:18] VITALS: BP 137/71
--- NOTE | 2019-06-09 14:00 | NUR ---
PT LYING IN BED NO S/SX OF DISTRESS, CL IN REACH CONTINUE WITH PLAN OF CARE
--- NOTE | 2019-06-09 15:49 | NUR ---
I have reviewed this patient and I concur with the Shift Assessment completed by the Licensed Practical Nurse today this shift.
[2019-06-09 16:34] VITALS: BP 135/66
[2019-06-09 18:25] LABS: APPEARANCE CLEAR (CLEAR); BILIRUBIN NEGATIVE (NEGATIVE); COLOR YELLOW (YELLOW); GLUCOSE NEGATIVE (NEGATIVE); KETONE NEGATIVE (NEGATIVE); NITRITE NEGATIVE (NEGATIVE); PROTEIN NEGATIVE (NEGATIVE); UROBILINOGEN NORMAL (NORMAL)
--- NOTE | 2019-06-09 19:00 | NUR ---
BEDSIDE REPORT RECEIVED AND CARE OF PT ASSUMED. PT LYING IN SUPINE POSITION WATCHING TV. LEFT SC CENTRAL LINE SALINE LOCKED. PREVENA WOUND VAC IN PLACE WITH NO LEAKAGE ALARMS. WILL MONITOR FOR NEEDS.
[2019-06-09 20:00] VITALS: BP 161/72
--- NOTE | 2019-06-09 20:25 | NUR ---
ASSISTED PT IN CHANGED GOWN AND LINENS.
--- NOTE | 2019-06-09 21:20 | NUR ---
GAVE ZOFRAN IVP FOR NAUSEA AND VOMITING...PT VOMITED APPROX 200 ML GREEN EMESIS. WILL CONTINUE TO MONITOR FOR NEEDS.
--- NOTE | 2019-06-10 | NUR ---
PT MOANING AND VERY ANXIOUS...C/O PAIN AND NAUSEA. GAVE NORCO PO AND ATIVAN 1 MG IVP PER PRN ORDERS. WILL MONITOR FOR EFFECTIVENESS.
[2019-06-10 00:17] VITALS: BP 166/57
[2019-06-10 04:15] VITALS: BP 141/81
--- NOTE | 2019-06-10 04:15 | NUR ---
PEDRO BLOOD FROM CENTRAL LINE FOR AM LABS AND DELIVERED TO LAB.
[2019-06-10 04:23] LABS: BASOPHILS 0.1 % (0-2); EOSINOPHILS 1.7 % (0-7); HEMATOCRIT 36.8 % (36.0-48.0); HEMOGLOBIN 11.9 g/dL (12-16); IMMATURE GRANULOCYTES 1.1 % (0-5); LYMPHOCYTES 5.3 % (15-50); MCH 28.2 pg (26.0-34.0); MCHC 32.3 g/dL (31.0-37.0); MCV 87.2 fL (80.0-100.0); MEAN PLATELET VOLUME 8.3 fL (7.4-10.4); NEUTROPHILS 87.8 % (40-80); PLATELET COUNT 460 10x3/uL (130-400); RBC 4.22 10x6/uL (4.00-5.40); RDW 15.1 % (11.5-14.5)
[2019-06-10 04:29] LABS: WBC 18.8 10x3/uL (4.8-10.8)
[2019-06-10 04:41] LABS: ALBUMIN 1.8 g/dL (3.4-5.0); ALKALINE PHOSPHATASE 138 U/L (46-116); ALT (SGPT) 16 U/L (10-68); BILIRUBIN - TOTAL 0.35 mg/dL (0.2-1.3); CHLORIDE - SERUM 104 mmol/L (98-107); CREATININE - SERUM 0.7 mg/dL (0.6-1.3); GLUCOSE 101 mg/dL (74-106); PROTEIN - SERUM 5.7 g/dL (6.4-8.2); SODIUM 140 mmol/L (136-145); eGFR NON AFRICAN AMERICAN > 90 mL/min (90-120)
[2019-06-10 04:43] LABS: CALC OSMOLALITY 276 mosm/kg (275-300); POTASSIUM - SERUM 3.9 mmol/L (3.5-5.1); UREA NITROGEN 7 mg/dL (7-18)
--- NOTE | 2019-06-10 06:12 | NUR ---
GAVE NORCO PER REQUEST FOR PAIN. WILL MONITOR FOR EFFECTIVNESS.
--- NOTE | 2019-06-10 07:48 | NUR ---
PT RESTING. RR EVEN AND UNLABORED. DENIES NEEDS OR PAIN AT THIS TIME. BED IN LOWEST POSITION. CALL LIGHT WITHIN REACH. WILL CONTINUE TO MONITOR.
[2019-06-10 09:23] VITALS: BP 142/77
--- NOTE | 2019-06-10 11:55 | NUR ---
PT C/O PAIN MEDICATION NOT WORKING. STATES ABD PAIN 01/04. PT ALSO REFUSED MORPHINE THAT SHE IS ORDERED. MESSAGE SENT TO DR. MATHIAS. PT CURRENTLY RESTING, EYES CLOSED. EASILY AROUSABLE TO VERBAL STIMULI.
[2019-06-10 13:12] VITALS: BP 163/87
--- NOTE | 2019-06-10 14:30 | NUR ---
PT VOMITED A SIGNIFICANT AMOUNT OF GREEN/YELLOW VOMIT. STILL COMPLAINING OF PAIN IN ABDOMEN. ORDERS RECIEVED FOR NG TUBE PLACEMENT. PLACED IN RIGHT NOSTRIL. KUB ORDERED AND PERFORMED WAITING PLACEMENT CONFIRMATION
--- NOTE | 2019-06-10 16:31 | NUR ---
PLACMENT CONFIRMED. TUBE ADVANCED PER RADIOLOGIST. 1500MLS DARK GREEN BILE NOTED. DILAUDED PAINTER AIRCRAFT INITIATED PER ORDER. WILL CONTINUE TO MONITOR.
[2019-06-10 17:20] VITALS: BP 132/62
--- NOTE | 2019-06-10 17:32 | NUR ---
I have reviewed this patient and I concur with the Shift Assessment completed by the Licensed Practical Nurse today this shift.
[2019-06-10 20:00] VITALS: BP 152/77
--- NOTE | 2019-06-10 21:21 | NUR ---
A/O WITH NO SIGNS OF ACUTE DISTRESS. CENTRAL LINE TO THE LT SUBCLAVIAN, DRESSING INTACT. NGT NOTED TO THE LT NARE WITH GREEN DRAINAGE. GURGLING ASCULTATED WITH 10ML OF AIR. WOUDN VAC TO THE ABDOMEN. DENIES NO OTHER NEEDS AT THIS TIME. CONTINUE PLAN OF CARE.
--- NOTE | 2019-06-10 23:59 | NUR ---
CALLED BREIVING TO CLARIFY HOW FAR TO ADVANCE NGT, WANTED 4 INCHES. MEASURED OUT 4 INCHED AND MARKED TUBING. ADVANCED TUBING TO FIFI AND SECURED WITH TAPE TO NOSE. GREEN DISCHARGE NOTED. DENIES NO OTHER NEEDS AT THIS TIME. CONTINUE PLAN OF CARE.
[2019-06-11 00:39] VITALS: BP 138/80
--- NOTE | 2019-06-11 01:34 | NUR ---
NO OUTPUT NOTED AND VOICES NO URGE TO VOID. BLADDER SCAN SHOWED 0ML. WILL CONTINUE TO MONITOR.
[2019-06-11 04:00] VITALS: BP 139/74
--- NOTE | 2019-06-11 05:09 | NUR ---
BLADDER SCAN SHOWED 63ML. CALLED RACH, NO INTERVENTION NEEDED. WILL CONTINUE TO MONITOR AND PASS ALONG IN REPORT.
[2019-06-11 06:02] LABS: BASOPHILS 0.1 % (0-2); EOSINOPHILS 1.7 % (0-7); HEMATOCRIT 39.2 % (36.0-48.0); HEMOGLOBIN 12.7 g/dL (12-16); IMMATURE GRANULOCYTES 0.7 % (0-5); LYMPHOCYTES 7.5 % (15-50); MCH 28.7 pg (26.0-34.0); MCHC 32.4 g/dL (31.0-37.0); MCV 88.7 fL (80.0-100.0); MEAN PLATELET VOLUME 8.2 fL (7.4-10.4); MONOCYTES 7.1 % (2-11); NEUTROPHILS 82.9 % (40-80); PLATELET COUNT 540 10x3/uL (130-400); RBC 4.42 10x6/uL (4.00-5.40); RDW 15.2 % (11.5-14.5); WBC 17.1 10x3/uL (4.8-10.8)
[2019-06-11 06:16] LABS: CALC OSMOLALITY 274 mosm/kg (275-300); CARBON DIOXIDE 33.3 mmol/L (21.0-32.0); CHLORIDE - SERUM 100 mmol/L (98-107); CREATININE - SERUM 0.7 mg/dL (0.6-1.3); GLUCOSE 93 mg/dL (74-106); POTASSIUM - SERUM 3.8 mmol/L (3.5-5.1); SODIUM 138 mmol/L (136-145); eGFR NON AFRICAN AMERICAN > 90 mL/min (90-120)
[2019-06-11 06:19] LABS: UREA NITROGEN 9 mg/dL (7-18)
[2019-06-11 08:13] VITALS: BP 111/69
--- NOTE | 2019-06-11 08:56 | NUR ---
PT ALERT X 4. BREATH SOUNDS CLEAR BILAT. NG TUBE TO LEFT NARE. CENTRAL LINE TO LEFT SUBCLAVIAN, PATENT, DRESSING CDI. PT REPORTING PAIN OF 7/10, SENIOR PRODUCT DEVELOPMENT MANAGER IN USE. PT REQUESTING FOR ME TO CONTACT SISTER AND ASK HER TO COME FOR A VISIT. BED LOW, CALL LIGHT IN REACH. NO OTHER NEEDS AT THIS TIME.
--- NOTE | 2019-06-11 12:38 | NUR ---
NUTRITION F/U CHART REVIEWED. PT WITH VISITOR AT BEDSIDE. NG TO SUCTION. RECOMMEND STARTING NUTRITION SUPPORT IF PT UNABLE TO TOLERATE PO IN [address] FOLLOWING
[2019-06-11 13:05] VITALS: BP 156/65
[2019-06-11 16:33] VITALS: BP 137/67
[2019-06-11 20:00] VITALS: BP 140/56
--- NOTE | 2019-06-11 21:42 | NUR ---
A/O WITH NO SIGNS OF DISTRESS. NGT NOTED TO THE LT NARE WITH GREEN DRAINAGE AND WOUND VAC TO THE ABDOMEN. DRESSING CHANGE TO THE LT SUBCLAVIAN. SITE IS FREE OF SWELLING. APPLIED POWDER TO FOLDS. DENIES NO OTHER NEEDS AT THIS TIME. CONTINUE PLAN OF CARE.
[2019-06-12] VITALS: BP 165/68
[2019-06-12 04:00] VITALS: BP 145/73
[2019-06-12 06:15] LABS: CALC OSMOLALITY 271 mosm/kg (275-300); CALCIUM 8.1 mg/dL (8.5-10.1); CHLORIDE - SERUM 102 mmol/L (98-107); CREATININE - SERUM 0.5 mg/dL (0.6-1.3); GLUCOSE 69 mg/dL (74-106); SODIUM 138 mmol/L (136-145); UREA NITROGEN 7 mg/dL (7-18); eGFR NON AFRICAN AMERICAN > 90 mL/min (90-120)
--- NOTE | 2019-06-12 07:40 | NUR ---
PT LYING IN BED C/O MOUTH AND THROAT SORE DUE TO NGT, TOLD PT I WILL LOOK TO SEE IF CHLORASEPTIC HAD BEEN ORDERED FOR HER. NO OTHER NEEDS AT THIS TIME, CONTINUE WITH PLAN OF CARE
[2019-06-12 07:45] LABS: BASOPHILS 0.1 % (0-2); EOSINOPHILS 2.2 % (0-7); HEMATOCRIT 36.6 % (36.0-48.0); HEMOGLOBIN 11.4 g/dL (12-16); IMMATURE GRANULOCYTES 0.7 % (0-5); LYMPHOCYTES 11.1 % (15-50); MCH 28.2 pg (26.0-34.0); MCHC 31.1 g/dL (31.0-37.0); MCV 90.6 fL (80.0-100.0); MEAN PLATELET VOLUME 8.2 fL (7.4-10.4); MONOCYTES 8.4 % (2-11); NEUTROPHILS 77.5 % (40-80); PLATELET COUNT 516 10x3/uL (130-400); RBC 4.04 10x6/uL (4.00-5.40); RDW 14.7 % (11.5-14.5)
[2019-06-12 07:46] LABS: WBC 11.2 10x3/uL (4.8-10.8)
[2019-06-12 07:52] VITALS: BP 160/73
[2019-06-12 12:14] VITALS: BP 154/69
--- NOTE | 2019-06-12 13:06 | NUR ---
pt is nauseous, ngt is clamped pt did not want to turn back on, gave pt wet wash cloth will continue with plan of care
[2019-06-12 16:33] VITALS: BP 138/60
--- NOTE | 2019-06-12 18:54 | NUR ---
I have reviewed this patient and I concur with the Shift Assessment completed by the Licensed Practical Nurse today this shift.
--- NOTE | 2019-06-12 19:30 | NUR ---
A/O WITH NO SIGNS OF ACUTE DISTRESS. LT SUB LINE WITH DRESSING CLEAN AND INTACT. NGT NOTED TO THE LT NARE WITH GREEN DISCHARGE AND WOUND VAC TO THE ABDOMEN. DENIES NO OTHER NEEDS AT THIS TIME. CONTINUE PLAN OF CARE.
[2019-06-12 20:00] VITALS: BP 138/76
--- NOTE | 2019-06-12 23:44 | NUR ---
VOMITED UP 600ML OF GREEN EMESIS. ZOFRAN GIVEN. WILL CONTINUE TO MONITOR.
[2019-06-13] VITALS: BP 174/67
--- NOTE | 2019-06-13 03:09 | NUR ---
NO URINE OUTPUT. BLADDER SCAN 0ML. WILL CONTINUE TO MONITOR.
[2019-06-13 04:00] VITALS: BP 150/68
[2019-06-13 05:30] LABS: CALC OSMOLALITY 269 mosm/kg (275-300); CALCIUM 8.5 mg/dL (8.5-10.1); CHLORIDE - SERUM 101 mmol/L (98-107); CREATININE - SERUM 0.5 mg/dL (0.6-1.3); GLUCOSE 91 mg/dL (74-106); POTASSIUM - SERUM 3.5 mmol/L (3.5-5.1); SODIUM 136 mmol/L (136-145); UREA NITROGEN 6 mg/dL (7-18); eGFR NON AFRICAN AMERICAN > 90 mL/min (90-120)
[2019-06-13 05:41] LABS: BASOPHILS 0.1 % (0-2); EOSINOPHILS 1.3 % (0-7); HEMATOCRIT 37.1 % (36.0-48.0); HEMOGLOBIN 11.8 g/dL (12-16); IMMATURE GRANULOCYTES 0.7 % (0-5); LYMPHOCYTES 7.6 % (15-50); MCH 28.4 pg (26.0-34.0); MCHC 31.8 g/dL (31.0-37.0); MCV 89.4 fL (80.0-100.0); MEAN PLATELET VOLUME 8.3 fL (7.4-10.4); MONOCYTES 8.1 % (2-11); NEUTROPHILS 82.2 % (40-80); PLATELET COUNT 515 10x3/uL (130-400); RBC 4.15 10x6/uL (4.00-5.40); RDW 14.5 % (11.5-14.5); WBC 13.5 10x3/uL (4.8-10.8)
--- NOTE | 2019-06-13 07:00 | NUR ---
ALERT AND ORIENTED, RESTING IN BED WITH EYES OPEN. NO C/O PAIN. NO S/S OF ACUTE DISTRESS NOTED. DENIES ANY NEEDS AT THIS TIME. NG TUBE TO LEFT NARE, L/I/S. CALL LIGHT IN REACH. WILL CONTINUE TO MONITOR.
[2019-06-13 09:00] VITALS: BP 156/69
[2019-06-13 13:16] VITALS: BP 128/59
--- NOTE | 2019-06-13 15:15 | NUR ---
Prevena dressing on abdomen was attached to Ulta vac [id number] this afternoon due to prevena pump run time expiring.
--- NOTE | 2019-06-13 15:31 | NUR ---
I have reviewed this patient and I concur with the Shift Assessment completed by the Licensed Practical Nurse today this shift.
[2019-06-13 17:23] VITALS: BP 145/71
[2019-06-13 20:00] VITALS: BP 130/64
[2019-06-14] VITALS: BP 176/76
[2019-06-14 04:00] VITALS: BP 147/64
--- NOTE | 2019-06-14 04:30 | NUR ---
D/C'D GUIDE WINDER PUMP PER ORDERS.
[2019-06-14 06:43] LABS: BASOPHILS 0.3 % (0-2); EOSINOPHILS 3.4 % (0-7); HEMATOCRIT 34.8 % (36.0-48.0); IMMATURE GRANULOCYTES 1.1 % (0-5); LYMPHOCYTES 18.1 % (15-50); MCH 28.1 pg (26.0-34.0); MCHC 31.6 g/dL (31.0-37.0); MEAN PLATELET VOLUME 8.2 fL (7.4-10.4); MONOCYTES 9.8 % (2-11); NEUTROPHILS 67.3 % (40-80); PLATELET COUNT 476 10x3/uL (130-400); RBC 3.91 10x6/uL (4.00-5.40); RDW 14.4 % (11.5-14.5)
[2019-06-14 06:59] LABS: CALC OSMOLALITY 274 mosm/kg (275-300); CALCIUM 8.3 mg/dL (8.5-10.1); CARBON DIOXIDE 29.7 mmol/L (21.0-32.0); CHLORIDE - SERUM 102 mmol/L (98-107); CREATININE - SERUM 0.5 mg/dL (0.6-1.3); GLUCOSE 97 mg/dL (74-106); POTASSIUM - SERUM 3.2 mmol/L (3.5-5.1); SODIUM 139 mmol/L (136-145); UREA NITROGEN 5 mg/dL (7-18); eGFR NON AFRICAN AMERICAN > 90 mL/min (90-120)
[2019-06-14 07:20] LABS: PHOSPHOROUS 2.6 mg/dL (2.5-4.9)
--- NOTE | 2019-06-14 07:53 | NUR ---
PT SITTING UP IN BED WITH EYES OPEN, NO S/S OF DISTRESS CURRENTLY NOTED. IV LOCATED TO LEFT SUBCLAVIAN CURRENTLY RUNNING NS @ 50 AND PROCAL @ 50. DENIES NEEDS AT THIS TIME, WILL CONT TO MONITOR.
[2019-06-14 09:33] VITALS: BP 108/63
--- NOTE | 2019-06-14 11:36 | NUR ---
PT REPORTS PAIN LEVEL 8/10, ADMINISTERED NORCO PER ORDERS.
[2019-06-14 13:47] VITALS: BP 144/72
--- NOTE | 2019-06-14 13:55 | NUR ---
WOUND VAC DC`D, BETADINE DRESSING APPLIED PER 'S ORDERS. WILL CONT TO MONITOR.
--- NOTE | 2019-06-14 15:02 | NUR ---
PT REPORTS PAIN LEVEL 8/10, ADMINISTERED NORCO PER ORDERS.
[2019-06-14 17:35] VITALS: BP 151/75
[2019-06-14 20:00] VITALS: BP 153/72
--- NOTE | 2019-06-14 20:00 | NUR ---
ALERT SITTING UP IN BED C/O ABD PAIN, HYDROCODONE GIVEN ORDERED, ABD DRESSING C/D/I, SEE SHIFT ASSESSMENT, CALL LIGHT IN REACH
[2019-06-15] VITALS: BP 163/66
[2019-06-15 04:00] VITALS: BP 163/81
[2019-06-15 05:37] LABS: BASOPHILS 0.4 % (0-2); EOSINOPHILS 2.7 % (0-7); HEMATOCRIT 37.4 % (36.0-48.0); HEMOGLOBIN 11.8 g/dL (12-16); IMMATURE GRANULOCYTES 1.1 % (0-5); LYMPHOCYTES 18.1 % (15-50); MCH 27.9 pg (26.0-34.0); MCHC 31.6 g/dL (31.0-37.0); MCV 88.4 fL (80.0-100.0); MEAN PLATELET VOLUME 8.3 fL (7.4-10.4); MONOCYTES 11.2 % (2-11); NEUTROPHILS 66.5 % (40-80); PLATELET COUNT 516 10x3/uL (130-400); RBC 4.23 10x6/uL (4.00-5.40); RDW 14.3 % (11.5-14.5); WBC 8.5 10x3/uL (4.8-10.8)
[2019-06-15 06:16] LABS: CALC OSMOLALITY 275 mosm/kg (275-300); CALCIUM 8.4 mg/dL (8.5-10.1); CARBON DIOXIDE 29.5 mmol/L (21.0-32.0); CHLORIDE - SERUM 105 mmol/L (98-107); CREATININE - SERUM 0.6 mg/dL (0.6-1.3); GLUCOSE 106 mg/dL (74-106); POTASSIUM - SERUM 3.4 mmol/L (3.5-5.1); SODIUM 140 mmol/L (136-145); UREA NITROGEN 5 mg/dL (7-18); eGFR NON AFRICAN AMERICAN > 90 mL/min (90-120)
[2019-06-15 08:53] VITALS: BP 155/67
--- NOTE | 2019-06-15 09:00 | NUR ---
ALERT AND ORIENTED X4. ABDONINAL DRESSING INTACT WITH BOWLE SOUNDS HYPOACTIVEX4. STATES HAS HAD FLATULANCE. OEFT SUBLCAVIAN INTACT WITH IVF INFUSING AT PRESCRIBED RATE WITH NO S/S OF INFECTION/INFILTRATION. NORCO GIVEN FOR PAIN MANAGEMENT AND EFFECTIVE. UP ADLIB IN ROOM. ENCOURAGED TO USE CALL LIGHT FOR ASSIST. HRRR AND DENIES ANY CHEST PAIN OR DISCOMFORT.
[2019-06-15 12:56] VITALS: BP 152/68
[2019-06-15 17:02] VITALS: BP 169/73
[2019-06-15 20:00] VITALS: BP 152/79
--- NOTE | 2019-06-15 20:00 | NUR ---
ALERT RESTING IN BED, DENIES PAIN OR NEEDS AT THIS TIME, SEE SHIFT ASSESSMENT, CALL LIGHT IN REACH
--- NOTE | 2019-06-15 21:30 | NUR ---
ABD DRESSING CHANGED AFTER RECIEVING BATH PER PT REQUEST, DRAINAGE NOTED TO LOWER AREA OF DRESSING , BETADING DRESSING APPLIED AND SECURED WITH TAPE
[2019-06-16] VITALS: BP 142/70
[2019-06-16 04:00] VITALS: BP 152/70
[2019-06-16 06:40] LABS: ALBUMIN 2.1 g/dL (3.4-5.0); ALKALINE PHOSPHATASE 124 U/L (46-116); ALT (SGPT) 20 U/L (10-68); BILIRUBIN - TOTAL 0.23 mg/dL (0.2-1.3); CALC OSMOLALITY 274 mosm/kg (275-300); CALCIUM 8.5 mg/dL (8.5-10.1); CARBON DIOXIDE 30.1 mmol/L (21.0-32.0); CHLORIDE - SERUM 104 mmol/L (98-107); CREATININE - SERUM 0.7 mg/dL (0.6-1.3); GLUCOSE 99 mg/dL (74-106); MAGNESIUM - SERUM 2.3 mg/dL (1.8-2.4); PHOSPHOROUS 2.3 mg/dL (2.5-4.9); PROTEIN - SERUM 6.1 g/dL (6.4-8.2); SODIUM 138 mmol/L (136-145); UREA NITROGEN 9 mg/dL (7-18); eGFR NON AFRICAN AMERICAN > 90 mL/min (90-120)
[2019-06-16 07:58] VITALS: BP 122/69
--- NOTE | 2019-06-16 08:00 | NUR ---
ASSESSMENT PER FLOW SHEET. PT IS WITHOUT DISTRESS.CALL LIGHT IN REACH
[2019-06-16 08:06] LABS: BASOPHILS 0.3 % (0-2); EOSINOPHILS 3.1 % (0-7); HEMATOCRIT 38.3 % (36.0-48.0); HEMOGLOBIN 11.9 g/dL (12-16); IMMATURE GRANULOCYTES 1.2 % (0-5); LYMPHOCYTES 18.7 % (15-50); MCH 28.1 pg (26.0-34.0); MCHC 31.1 g/dL (31.0-37.0); MCV 90.3 fL (80.0-100.0); MEAN PLATELET VOLUME 8.4 fL (7.4-10.4); MONOCYTES 12.5 % (2-11); NEUTROPHILS 64.2 % (40-80); PLATELET COUNT 508 10x3/uL (130-400); RBC 4.24 10x6/uL (4.00-5.40); RDW 14.6 % (11.5-14.5); WBC 7.5 10x3/uL (4.8-10.8)
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
--- NOTE | 2019-06-16 14:15 | NUR ---
Nutrition follow-up: Diet: full liquids ProcalAmine PPN @ 50 ml/hr Labs reviewed Wt: 239# NGT in place Will need TPN started within 24-48 hours if po intake does not improve RDN following.
--- NOTE | 2019-06-16 15:09 | NUR ---
VERY LOOSE WATERY STOOLS. HAS BEEN UP TO BATHROOM.
[2019-06-16 17:33] VITALS: BP 149/81
--- NOTE | 2019-06-16 19:30 | NUR ---
SUPINE IN BED, A&O X 4. DRESSING TO MIDLINE INCISION C/D/I. FELECIA TO LEFT AND RIGHT ABDOMEN OPEN TO AIR, WELL APPROXIMATED. PT REPORTS LOOSE STOOLS AND MILD ABDOMINAL DISCOMFORT. DENIES FURTHER NEEDS WILL CONTINUE TO MONITOR.
[2019-06-16 21:11] VITALS: BP 150/69
[2019-06-17 01:24] VITALS: BP 146/80
--- NOTE | 2019-06-17 03:20 | NUR ---
I have reviewed this patient and I concur with the Shift Assessment completed by the Licensed Practical Nurse today this shift.
[2019-06-17 04:55] LABS: BASOPHILS 0.4 % (0-2); EOSINOPHILS 4.8 % (0-7); HEMATOCRIT 40.3 % (36.0-48.0); HEMOGLOBIN 12.6 g/dL (12-16); IMMATURE GRANULOCYTES 1.5 % (0-5); LYMPHOCYTES 23.1 % (15-50); MCH 28.3 pg (26.0-34.0); MCHC 31.3 g/dL (31.0-37.0); MCV 90.6 fL (80.0-100.0); MEAN PLATELET VOLUME 8.4 fL (7.4-10.4); MONOCYTES 11.5 % (2-11); NEUTROPHILS 58.7 % (40-80); PLATELET COUNT 498 10x3/uL (130-400); RBC 4.45 10x6/uL (4.00-5.40); RDW 14.6 % (11.5-14.5); WBC 8.1 10x3/uL (4.8-10.8)
[2019-06-17 04:56] VITALS: BP 129/68
[2019-06-17 05:28] LABS: ALBUMIN 2.2 g/dL (3.4-5.0); ALKALINE PHOSPHATASE 139 U/L (46-116); ALT (SGPT) 23 U/L (10-68); BILIRUBIN - TOTAL 0.22 mg/dL (0.2-1.3); CALC OSMOLALITY 273 mosm/kg (275-300); CALCIUM 8.6 mg/dL (8.5-10.1); CARBON DIOXIDE 29.1 mmol/L (21.0-32.0); CHLORIDE - SERUM 104 mmol/L (98-107); CREATININE - SERUM 0.7 mg/dL (0.6-1.3); GLUCOSE 104 mg/dL (74-106); MAGNESIUM - SERUM 2.1 mg/dL (1.8-2.4); POTASSIUM - SERUM 4.4 mmol/L (3.5-5.1); PROTEIN - SERUM 6.3 g/dL (6.4-8.2); SODIUM 138 mmol/L (136-145); UREA NITROGEN 8 mg/dL (7-18); eGFR NON AFRICAN AMERICAN > 90 mL/min (90-120)
--- NOTE | 2019-06-17 08:00 | NUR ---
ASSESSMENT PER FLOW SHEET. PT IS WITHOUT DISTRESS.CALL LIGHT IN REACH.
[2019-06-17 09:16] VITALS: BP 144/76
[2019-06-17 13:29] VITALS: BP 147/66
--- NOTE | 2019-06-17 13:46 | NUR ---
PREVENA PLUS APPLIED THE INCISION ON ABDOMEN. INCISION IS 33CM LONG. SUTURES AND FELECIA INTACT. PT TOLERATED WELL.
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
--- NOTE | 2019-06-17 17:03 | NUR ---
PT REMAINS WITHOUT CHANGE.PREVENA VAC PLACED BY JACKIE WITH WOUND CARE TODAY.SHE HOPES TO EAT" REAL FOOD" SOON.CONT PLAN OF CARE
[2019-06-17 17:55] VITALS: BP 142/59
[2019-06-17 21:18] VITALS: BP 131/61
--- NOTE | 2019-06-17 22:00 | NUR ---
A&O X 4, AMBULATORY INDEPENDENTLY IN ROOM. HALF OF SANDWICH TRAY CONSUMED W/O ISSUE. DENIES NEEDS AT THIS TIME. WILL CONTINUE TO MONITOR
[2019-06-18 01:14] VITALS: BP 124/58
--- NOTE | 2019-06-18 03:20 | NUR ---
I have reviewed this patient and I concur with the Shift Assessment completed by the Licensed Practical Nurse today this shift.
[2019-06-18 05:18] LABS: BASOPHILS 0.2 % (0-2); EOSINOPHILS 4.6 % (0-7); HEMATOCRIT 38.2 % (36.0-48.0); IMMATURE GRANULOCYTES 1.3 % (0-5); LYMPHOCYTES 16.9 % (15-50); MCH 28.5 pg (26.0-34.0); MCHC 31.4 g/dL (31.0-37.0); MCV 90.7 fL (80.0-100.0); MEAN PLATELET VOLUME 8.4 fL (7.4-10.4); PLATELET COUNT 423 10x3/uL (130-400); RBC 4.21 10x6/uL (4.00-5.40); RDW 14.8 % (11.5-14.5); WBC 8.4 10x3/uL (4.8-10.8)
[2019-06-18 05:25] LABS: ALBUMIN 2.1 g/dL (3.4-5.0); ALKALINE PHOSPHATASE 137 U/L (46-116); ALT (SGPT) 21 U/L (10-68); BILIRUBIN - TOTAL 0.11 mg/dL (0.2-1.3); CALC OSMOLALITY 276 mosm/kg (275-300); CALCIUM 8.8 mg/dL (8.5-10.1); CARBON DIOXIDE 29.6 mmol/L (21.0-32.0); CHLORIDE - SERUM 103 mmol/L (98-107); CREATININE - SERUM 0.7 mg/dL (0.6-1.3); GLUCOSE 102 mg/dL (74-106); MAGNESIUM - SERUM 1.9 mg/dL (1.8-2.4); PHOSPHOROUS 3.7 mg/dL (2.5-4.9); POTASSIUM - SERUM 4.4 mmol/L (3.5-5.1); SODIUM 139 mmol/L (136-145); eGFR NON AFRICAN AMERICAN > 90 mL/min (90-120)
[2019-06-18 05:30] LABS: UREA NITROGEN 11 mg/dL (7-18)
[2019-06-18 06:06] VITALS: BP 122/70
--- NOTE | 2019-06-18 06:45 | NUR ---
ALERT AND ORIENTED, RESTING IN BED WITH EYES OPEN. NO C/O PAIN. NO S/S OF ACUTE DISTRESS NOTED. INCISION TO MIDLINE ABDOMEN, WOUND VAC PRESENT. INCISION TO LEFT SIDE ABDOMEN, DRESSING C/D/I. INCISION TO RIGHT SIDE ABDOMEN, DRESSING C/D/I. LEFT SUBCLAVIAN CVL, PROCAL INFUSING @ 100ML/HR. SITE PATENT WITHOUT REDNESS OR SWELLING. SCDS PRESENT. DENIES ANY NEEDS AT THIS TIME. CALL LIGHT IN REACH. WILL CONTINUE TO MONITOR.
[2019-06-18 08:55] VITALS: BP 130/71
[2019-06-18 12:55] VITALS: BP 149/62
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
--- NOTE | 2019-06-18 17:21 | NUR ---
I have reviewed this patient and I concur with the Shift Assessment completed by the Licensed Practical Nurse today this shift.
[2019-06-18] MEDS ORDERED: HYDROCODON-ACE1 EAC7 PO (17:35)
--- NOTE | 2019-06-18 18:02 | NUR ---
DISCHARGED PATIENT HOME VIA WHEELCHAIR ACCOMPANIED BY STAFF. CVL DISCONTINUED BY JSESIE FAIRCHILD RN, CATHETER TIP INTACT. CONNECTED PORTABLE PROVENA VAC TO PATIENT. DEMONSTRATED TO PATIENT ON HOW TO TURN ON AND CHARGE. WENT OVER DISCHARGE INSTRUCTIONS WITH PATIENT, VERBALIZED UNDERSTANDING. DENIES ANYTHING FURTHER.
== END 2019-06-18 18:06 | disposition home health service (06) | DRG 329 ==
LOC: D.SDCHOLD 05-30 06:06 → D.CVICU 05-30 06:06 → D.MS 05-30 06:06 → D.SDCHOLD 05-30 08:00 → D.CVICU 05-30 15:22 → D.MS 06-03 18:52
PROVIDERS: Anesthesiology; Family Medicine; Internal Medicine Nephrology; Internal Medicine Pulmonary Disease; ADMIT Surgery; ATTEND Surgery
PROC: 0DB80ZZ Excision of Small Intestine, Open Approach (ICD-10-PCS; principal; 2019-05-30 08:00)
PROC: 0WBF0ZZ Excision of Abdominal Wall, Open Approach (ICD-10-PCS; 2019-05-30 08:00)
DX: K65.1 Peritoneal abscess (principal); J96.02 Acute respiratory failure with hypercapnia; J96.01 Acute respiratory failure with hypoxia; A41.9 Sepsis, unspecified organism; R09.2 Respiratory arrest; E43 Unspecified severe protein-calorie malnutrition; D62 Acute posthemorrhagic anemia; E87.2 Acidosis; Z68.42 Body mass index [BMI] 45.0-49.9, adult; F17.203 Nicotine dependence unspecified, with withdrawal; K63.2 Fistula of intestine; E66.01 Morbid (severe) obesity due to excess calories; F41.9 Anxiety disorder, unspecified; J45.909 Unspecified asthma, uncomplicated; G89.29 Other chronic pain; I95.9 Hypotension, unspecified; Z85.038 Personal history of other malignant neoplasm of large intestine

== ENCOUNTER → 2019-08-04 19:56 | Outpatient (CLI) | payer MEDICAID ==
[2019-05-31 08:44] VITALS: BMI 45.8
[~2019-08-04 19:56] MED LIST changes: +HYDROCODON-ACE1 EAC7 PO
== END | disposition home or self-care (01) ==
LOC: D.LABREF 19:56
PROVIDERS: ATTEND Surgery
DX: L02.211 Cutaneous abscess of abdominal wall (principal)

== ENCOUNTER → 2019-09-01 10:42 | Outpatient (CLI) | payer MEDICAID ==
[2019-05-31 08:44] VITALS: BMI 45.8
== END | disposition home or self-care (01) ==
LOC: D.CT 10:42
PROVIDERS: ATTEND Surgery
DX: L02.211 Cutaneous abscess of abdominal wall (principal)

== ENCOUNTER → 2019-10-27 20:15 | Outpatient (CLI) | payer MEDICAID ==
[2019-05-31 08:44] VITALS: BMI 45.8
== END | disposition home or self-care (01) ==
LOC: D.LABREF 20:15
PROVIDERS: ATTEND Surgery
DX: L02.211 Cutaneous abscess of abdominal wall (principal)

== ENCOUNTER 2019-11-25 06:01 | Day surgery (SDC) | payer MEDICAID ==
[~2019-11-25] VITALS: Ht 152.4 cm; Wt 98.9 kg
[~2019-11-25 06:01] MED LIST changes: +PROAIR HFA8.5 G1 INH
[2019-11-25 06:23] LABS: HEMATOCRIT 48.9 % (36.0-48.0); HEMOGLOBIN 15.7 g/dL (12-16); MCH 28.4 pg (26.0-34.0); MCHC 32.1 g/dL (31.0-37.0); MCV 88.6 fL (80.0-100.0); MEAN PLATELET VOLUME 8.6 fL (7.4-10.4); RBC 5.52 10x6/uL (4.00-5.40); RDW 16.9 % (11.5-14.5); WBC 15.7 10x3/uL (4.8-10.8)
[2019-11-25] MEDS ORDERED: EFFEXOR75 MG PO (07:09)
[2019-11-25 07:17] VITALS: BP 149/81; Ht 152.4 cm; Wt 98.9 kg
--- NOTE | 2019-11-25 18:28 | NUR ---
1820 PT'S RIDE HERE, TO CAR VIA .
--- NOTE | 2019-11-25 18:31 | OP ---
PATIENT NAME: PATRICE COOK MEDICAL RECORD: [id number] :58 LOCATION:D.OPS ADMISSION DATE: SURGEON: JOSE MATHIAS MD DATE OF OPERATION: 11/25/2019 Preop diagnosis: Draining subcutaneous wound of the abdominal wall. Postop diagnosis: Same PROCEDURE: Dimensions of the excision, including margins, measured 4.2 cm in the cephalad caudad dimension and 2.8 cm in the medial lateral dimension. The excised tissues included skin and subcutaneous tissue as well as part of the abscess wall. I sharply debrided back to healthy bleeding tissue. SURGEON: Jose Mathias MD ELECTRODE TURNER AND FINISHER: None. BLOOD LOSS: Minimal. ANESTHESIA: General. COMPLICATIONS: None. The patient has undergone an open ventral herniorrhaphy in the past. She developed persistent drainage. The drainage has been intermittent. It is through a tiny pinpoint area just to the right of the main incision. My plan is to excise this and place a wound VAC to aid in closure of this persistent abscess cavity, which I found operatively which was actually a tract. OPERATIVE COURSE: The patient was conveyed to the operating room electively on 11/25/2019. General anesthesia was induced by anesthesia staff. The abdomen was sterilely prepped and draped. Through the use of double curvilinear incisions, the skin and subcutaneous tissue around the opening was excised. I excised this to the granulated tract. Measurements were obtained. I curetted out the tract. There was tunneling at the 6 o'clock position. There was tunneling straight back toward the abdominal wall musculature and fascia. The length of tunnel was 3.8 cm. There was no undermining. Subcutaneous flaps were created sharply. I then curetted out the tract, after cultures have been obtained. After thorough curettage of the tract, I then irrigated with hydrogen peroxide. I cut a white wound VAC foam into a Austrian langston and placed down the tract. On top of this, I placed a black wound VAC sponge. Cellophane-type dressings were applied. I then scored one of these dressings and through a cellophane tract tunnel, I tunneled this at the 2 o'clock position. A wound VAC disk was applied to suction. The wound VAC held a good "raisin." The patient was then conveyed to post-anesthesia care unit where she was in stable condition. She will be dismissed home with the wound VAC. She has analgesia at home already. I will see her in the office in 2-3 weeks. TRANSINT:[id number] Voice Confirmation ID: [id number] DOCUMENT ID: [id number] OPERATIVE REPORT [id number] PATRICE COOK, JOSE PIERCE at 1831 CC: [id number] DICTATION DATE: 11/25/19 0957 COMPANION: 11/25/19 1532 [facility] 11/25/[address] [address]
== END 2019-11-25 18:20 | disposition home or self-care (01) ==
LOC: D.OPS 06:01 → D.PAN 08:00 → D.OPS 18:20
PROVIDERS: Anesthesiology; ATTEND Surgery
DX: L02.211 Cutaneous abscess of abdominal wall (principal); R10.9 Unspecified abdominal pain

== ENCOUNTER → 2019-12-04 18:35 | Outpatient (CLI) | payer MEDICAID ==
[2019-11-25 07:17] VITALS: BMI 42.6
[~2019-12-04 18:35] MED LIST changes: +EFFEXOR75 MG PO
== END | disposition home or self-care (01) ==
LOC: D.LABREF 18:35
PROVIDERS: ATTEND Surgery
DX: S31.109A Unspecified open wound of abdominal wall, unspecified quadrant without penetration into peritoneal cavity, initial encounter (principal)

== ENCOUNTER → 2020-01-12 14:53 | Outpatient (CLI) | payer MEDICAID ==
[2019-11-25 07:17] VITALS: BMI 42.6
== END | disposition home or self-care (01) ==
LOC: D.LABREF 14:53
PROVIDERS: ATTEND Surgery
DX: T81.89XA Other complications of procedures, not elsewhere classified, initial encounter (principal)

== ENCOUNTER → 2020-01-14 13:34 | Outpatient (CLI) | payer MEDICAID ==
[2019-11-25 07:17] VITALS: BMI 42.6
== END | disposition home or self-care (01) ==
LOC: D.LDO 13:34 → D.LABREF 13:34
PROVIDERS: ATTEND Surgery
DX: R19.7 Diarrhea, unspecified (principal)

== ENCOUNTER → 2020-03-01 19:37 | Outpatient (CLI) | payer MEDICAID ==
[2019-11-25 07:17] VITALS: BMI 42.6
== END | disposition home or self-care (01) ==
LOC: D.LABREF 19:37
PROVIDERS: ATTEND Nurse Practitioner
DX: R10.9 Unspecified abdominal pain (principal)

== ENCOUNTER 2020-08-26 08:28 | Day surgery (SDC) | payer MEDICAID ==
[~2020-08-26] VITALS: Ht 152.4 cm; Wt 90.7 kg
[2020-08-26 08:48] LABS: BASOPHILS 0.3 % (0-2); EOSINOPHILS 2.1 % (0-7); HEMATOCRIT 48.6 % (36.0-48.0); HEMOGLOBIN 15.4 g/dL (12-16); IMMATURE GRANULOCYTES 1.1 % (0-5); LYMPHOCYTE ABS# 2.45 10x3/uL (1.18-3.74); LYMPHOCYTES 21.5 % (15-50); MCH 29.8 pg (26.0-34.0); MCHC 31.7 g/dL (31.0-37.0); MEAN PLATELET VOLUME 8.6 fL (7.4-10.4); MONOCYTES 7.6 % (2-11); NEUTROPHIL ABS# 7.67 10x3/uL (1.56-6.13); NEUTROPHILS 67.4 % (40-80); RBC 5.17 10x6/uL (4.00-5.40); RDW 15.9 % (11.5-14.5); WBC 11.4 10x3/uL (4.8-10.8)
[2020-08-26 08:49] LABS: PLATELET COUNT 302 10x3/uL (130-400)
[2020-08-26 08:57] LABS: ANION GAP 13.8 mmol/L (8-16); CALCIUM 9.9 mg/dL (8.5-10.1); CARBON DIOXIDE 27.5 mmol/L (21.0-32.0); POTASSIUM - SERUM 4.3 mmol/L (3.5-5.1)
[2020-08-26 09:39] VITALS: BP 153/71; Ht 152.4 cm; Wt 90.7 kg
--- NOTE | 2020-08-26 11:14 | HP ---
PATIENT: PATRICE CERON MEDICAL RECORD: [id number] ACCOUNT: [id number] LOCATION:[facility] : 58 ADMISSION DATE: 08/26/20 PCP: SAIMA FLORES MD HISTORY AND PHYSICAL EXAMINATION CHIEF COMPLAINT: Draining wound. HISTORY OF PRESENT ILLNESS: The patient has a draining midline wound. She has already undergone one debridement. This is going to be more extensive debridement with placement of a wound VAC. The risks, possible complications, and alternatives of the procedure were explained to the patient. She elects to proceed. I specifically discussed with her the risk of nonhealing. PAST MEDICAL AND SURGICAL HISTORY: Hysterectomy, colon resection, cholecystectomy, appendectomy, hemorrhoidectomy, multiple laparotomies as well as a hernia repair, also anxiety, history of CVA, history of controlled gastroesophageal reflux, history of asthma, history of DVT with pulmonary thromboembolism. REVIEW OF SYSTEMS: Negative for angina or myocardial infarction. SOCIAL HISTORY: Ex-smoker. PHYSICAL EXAMINATION: GENERAL: The patient does not appear acutely ill. Does not appear chronically ill. VITAL SIGNS: Reviewed. EARS: External ears appear normal. EYES: Extraocular movements are intact. NECK: Trachea is midline. CHEST: No intercostal retractions. PULMONARY: Nonlabored. No stridor. 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 PLAN: Will be excisional debridement with placement of wound VAC. TRANSINT:[id number] Voice Confirmation ID: [id number] DOCUMENT ID: [id number] JEREMY MATHIAS MD at 1114 CC: [id number] DICTATION DATE: 08/26/20 0958 PROFESSOR OF MANAGEMENT: 08/26/20 1106 [address] [facility] [address] [id number]
--- NOTE | 2020-08-26 11:39 | NUR ---
PT WHEEZING IN NAYAN UPPER LOBES. ANESTHESIA AT BEDSIDE. ALBUTEROL BREATHIGN TX PER ANESTHESIA.
--- NOTE | 2020-08-26 11:56 | NUR ---
PATIENT SLEEPING STILL WHEEZING. PATIENT AWAKES ON VERBAL COMMAND BUT GOES BACK TO SLEEP CONSULTED ANESTHESAI
--- NOTE | 2020-08-26 12:14 | NUR ---
PER DR TRENA MILLS TO DC
--- NOTE | 2020-08-26 13:06 | OP ---
PATIENT NAME: PATRICE CERON MEDICAL RECORD: [id number] :58 LOCATION:[facility] ADMISSION DATE: SURGEON: JOSE MATHIAS MD DATE OF OPERATION: 08/26/2020 PREOPERATIVE DIAGNOSIS: Postoperative draining wound, recurrent, from the abdominal wall. POSTOPERATIVE DIAGNOSIS: Postoperative draining sinus, recurrent, of the anterior abdominal wall. PROCEDURE: Excisional debridement of abdominal wall with placement of wound VAC. Dimensions of the debridement, including margins, measured 4.2 cm in the cephalad caudad dimension and 2.8 cm in the medial lateral dimension. There was a sinus tract that traveled 4 cm down to what is probably mesh. Although I did not see any mesh. SURGEON: Jose Mathias MD CLOTHES MODEL: None. BLOOD LOSS: Minimal. ANESTHESIA: General. COMPLICATIONS: None. I did not see any purulence within the sinus tract; however, there was mucus type material. DESCRIPTION OF PROCEDURE: The patient was conveyed to the operating room electively on 08/26/2020. General anesthesia was induced by the anesthesia staff. The abdomen was sterilely prepped and draped. Through the opening of the sinus tract, I injected a combination of methylene blue and hydrogen peroxide. Through the use of double curvilinear incisions, I excised the skin and subcutaneous tissue from around the sinus tract. The sharp debridement included skin and subcutaneous tissue, sinus tract as well as fascia. I continued in a piecemeal fashion to excise any blue material and the blue material was within a sinus tract. I carried this down until it was fairly deep and then performed some curettage at the end of what appeared to be the sinus tract. Cultures were obtained. Dimensions were obtained. I then irrigated with hydrogen peroxide. I cut a white sponge into a [place] lang[place] and placed this down into the base of the sinus tract. Another wound VAC sponge was placed on top of this and then a black wound VAC sponge was placed on top. The cellophane type dressings were applied. These were scored. I then bridged another black wound VAC sponge on to the mid abdomen. The suction disk was applied, which held a good "raising" indicating a good suction. The patient was then extubated and conveyed to post-anesthesia care unit where she was in stable condition. She will be dismissed home on doxycycline and Ehrhardt. I would like to see her in my office in 4 weeks. I saw no enteral contents. No bilious material during the procedure. OPERATIVE REPORT [id number] PATRICE CERON TRANSINT:[id number] Voice Confirmation ID: [id number] DOCUMENT ID: [id number] JOSE MATHIAS MD at 1306 CC: [id number] DICTATION DATE: 08/26/20 1121 ADVERTISEMENT COMPOSITOR: 08/26/20 [address] [place] [address]
--- NOTE | 2020-08-26 14:16 | NUR ---
1410 DR ALBRECHT NOTIFIED OF PTS SEDATION LEVEL. PT AWAKENS WITH PHYSICAL STIMULI. ON 3LITERS NC. NO HISTORY OF SLEEP APNEA. CALL LIGHT IN HAND
--- NOTE | 2020-08-26 16:45 | NUR ---
1610 PT AWAKE AND SITTING UP IN BED ORIENTED TO PLACE. IV REMOVED AND ON RA. DENIES PAIN AND NAUSEA, DRESSING CDI. DAUGHTER WILL RETURN SOON.
--- NOTE | 2020-08-26 18:11 | NUR ---
1710 INSTRUCTIONS GIVEN TO DAUGHTER. PT ABLE TO DRESS HER SELF AND VOIDED X1. DENIES PAIN
== END 2020-08-26 17:10 | disposition home or self-care (01) ==
LOC: D.OPS 08:28
PROVIDERS: Anesthesiology; ATTEND Surgery
DX: S31.109D Unspecified open wound of abdominal wall, unspecified quadrant without penetration into peritoneal cavity, subsequent encounter (principal); Z86.73 Personal history of transient ischemic attack (TIA), and cerebral infarction without residual deficits; K21.9 Gastro-esophageal reflux disease without esophagitis; J45.909 Unspecified asthma, uncomplicated; Z90.49 Acquired absence of other specified parts of digestive tract

== ENCOUNTER → 2020-10-28 10:30 | Outpatient (CLI) | payer MEDICAID ==
[2020-08-26 09:39] VITALS: BMI 39.1
== END | disposition home or self-care (01) ==
LOC: D.MAMMO 10:30
PROVIDERS: ATTEND Surgery
DX: N63.22 Unspecified lump in the left breast, upper inner quadrant (principal)

== ENCOUNTER → 2020-11-12 08:52 | Outpatient (CLI) | payer MEDICAID ==
[2020-08-26 09:39] VITALS: BMI 39.1
== END | disposition home or self-care (01) ==
LOC: D.LABREF 08:52
PROVIDERS: ATTEND Surgery
DX: T14.8XXA Other injury of unspecified body region, initial encounter (principal)